=== PATIENT | female | born 1945 | race Asian ===

== ENCOUNTER 2018-03-09 14:13 | Emergency (ER) | payer MEDICARE, MEDICAID ==
[~2018-03-09] VITALS: Ht 152.4 cm; Wt 61.7 kg
[2018-03-09 15:28] VITALS: BP 137/71
--- NOTE | 2018-03-09 15:29 | Emergency Room Report ---
History of Present Illness General Chief Complaint: Head Injury Source: Patient Present Illness HPI This patient is Armenian speaking primarily.Apparently, this patient hit her head on the refrigerator yesterday. She did not fall or have syncope. She has had nausea and some shortness of breath throughout the day today. She was seen by her primary care physician who instructed her to come to the emergency department for further evaluation. She also had elevated blood pressure at the primary care physician's office.She denies chest pain or abdominal pain. She denies headache or blurry vision. She has no other complaints. The patient apparently hit her head on the refrigerator yesterday. She had been having nausea and shortness of breath and anxiety over the past day. She did see her primary care physician who had her present here to the emergency department for further evaluation. She denies headache. She denies chest pain. She denies abdominal pain. She has no other complaints. Allergies: Coded Allergies: No Known Allergies (Unverified , 03/09/18) Patient History Past Medical History: see triage record, DM, HTN Social History: Denies: smoking, alcohol use, drug use Last Menstrual Period: none Now: No Reviewed Nursing Documentation: PMH: Agreed; PSxH: Agreed Nursing Documentation-PMH Past Medical History: No History, Except For Hx Cardiac Problems: Yes - high cholesterol, hypothyroid Hx Hypertension: Yes Hx Diabetes: Yes Review of Systems All Other Systems: negative except mentioned in HPI Physical Exam Vital Signs Date Time Temp Pulse Resp B/P (MAP) Pulse Ox O2 Delivery O2 Flow Rate FiO2 03/09/18 14:27 98.6 71 20 149/74 96 Room Air 98.6 Sp02 EP Interpretation: reviewed, normal General Appearance: no apparent distress, alert, GCS 15, non-toxic Head: normocephalic, atraumatic Eyes: bilateral eye normal inspection, bilateral eye PERRL ENT: hearing grossly normal, normal pharynx, no angioedema, normal voice Neck: full range of motion, supple/symm/no masses Respiratory: chest non-tender, lungs clear, normal breath sounds, no respiratory distress, no retraction, no accessory muscle use, speaking full sentences Cardiovascular #1: regular rate, rhythm, no edema Gastrointestinal: normal bowel sounds, non tender, soft, non-distended, no guarding, no rebound Rectal: deferred Musculoskeletal: back normal, gait/station normal, normal range of motion, non- tender Neurologic: alert, oriented x3, responsive, motor strength/tone normal, sensory intact, speech normal Psychiatric: judgement/insight normal, memory normal, mood/affect normal, no suicidal/homicidal ideation Skin: normal color, no rash, warm/dry, well hydrated Medical Decision Making Diagnostic Impression: Primary Impression: Closed head injury ER Course This patient presented with nausea after striking her head on a refrigerator. Her evaluation is reassuring. Given the patient's age, I did obtain a CT of the head. There is no acute findings. Specifically no intracranial bleed. Laboratory workup is also benign. The patient had slightly elevated blood pressure with systolics in the 140s. This would not require intervention in the emergency department. The patient was asymptomatic for an emergency department and nontoxic overall. At this time, I did not identify an emergency medical condition. The patient is given close return precautions and follow-up instructions. Laboratory Tests Test 03/09/18 16:05 03/09/18 17:00 Sodium Level 142 MMOL/L (136-145) Potassium Level 4.6 MMOL/L (3.5-5.1) Chloride Level 105 MMOL/L (98-107) Carbon Dioxide Level 25 MMOL/L (21-32) Anion Gap 12 mmol/L (5-15) Blood Urea Nitrogen 12 mg/dL (7-18) Creatinine 0.9 MG/DL (0.55-1.30) Estimate Glomerular Filtration Rate mL/min (>60) Glucose Level 211 MG/DL (74-106) H Calcium Level 10.2 MG/DL (8.5-10.1) H Total Bilirubin 0.5 MG/DL (0.2-1.0) Aspartate Amino Transferase (AST) 24 U/L (15-37) Alanine Aminotransferase (ALT) 36 U/L (12-78) Alkaline Phosphatase 52 U/L (46-116) Total Creatine Kinase 45 U/L (26-308) Creatine Kinase MB < 0.5 NG/ML (0.0-3.6) Creatine Kinase MB Relative Index 1.1 Troponin I 0.000 ng/mL (0.000-0.056) Total Protein 8.6 G/DL (6.4-8.2) H Albumin 4.3 G/DL (3.4-5.0) Globulin 4.3 g/dL Albumin/Globulin Ratio 1.0 (1.0-2.7) White Blood Count 6.4 K/UL (4.8-10.8) Red Blood Count 4.11 M/UL (4.20-5.40) L Hemoglobin 12.5 G/DL (12.0-16.0) Hematocrit 35.6 % (37.0-47.0) L Mean Corpuscular Volume 87 FL (80-99) Mean Corpuscular Hemoglobin 30.5 PG (27.0-31.0) Mean Corpuscular Hemoglobin Concent 35.1 G/DL (32.0-36.0) Red Cell Distribution Width 11.9 % (11.6-14.8) Platelet Count 215 K/UL (150-450) Mean Platelet Volume 8.0 FL (6.5-10.1) Neutrophils (%) (Auto) % (45.0-75.0) Lymphocytes (%) (Auto) % (20.0-45.0) Monocytes (%) (Auto) % (1.0-10.0) Eosinophils (%) (Auto) % (0.0-3.0) Basophils (%) (Auto) % (0.0-2.0) Differential Total Cells Counted 100 Neutrophils % (Manual) 85 % (45-75) H Lymphocytes % (Manual) 13 % (20-45) L Monocytes % (Manual) 2 % (1-10) Eosinophils % (Manual) 0 % (0-3) Basophils % (Manual) 0 % (0-2) Band Neutrophils 0 % (0-8) Platelet Estimate Adequate Platelet Morphology Normal Red Blood Cell Morphology Normal Prothrombin Time 9.8 SEC (9.30-11.50) Prothrombin Time INR 0.9 (0.9-1.1) PTT 26 SEC (23-33) EKG Diagnostic Results Rate: normal Rhythm: NSR ST Segments: no acute changes Rhythm Strip Diag. Results EP Interpretation: yes Rate: 70's Rhythm: NSR, no PVC's, no ectopy Chest X-Ray Diagnostic Results Chest X-Ray Diagnostic Results : Chest X-Ray Ordered: Yes # of Views/Limited/Complete: 1 View Indication: Shortness of Breath EP Interpretation: No Interpretation: no consolidation, no effusion, no pneumothorax, no acute cardiopulmonary disease, other - Cardiomegaly Impression: No acute disease Electronically Signed by: Ezra CT/MRI/US Diagnostic Results CT/MRI/US Diagnostic Results : Imaging Test Ordered: CT head Impression No acute findings. See official report. Last Vital Signs Date Time Temp Pulse Resp B/P (MAP) Pulse Ox O2 Delivery O2 Flow Rate FiO2 03/09/18 14:27 98.6 71 20 149/74 96 Room Air 98.6 Status: improved Disposition: HOME, SELF-CARE Condition: Improved Patient Instructions: Head Injury, Adult, [id number] Additional Instructions: Please follow-up with your primary care physician for blood pressure control. PRASAD CORRIGAN D.O. Mar 09, 2018 15:29
--- NOTE | 2018-03-09 15:46 | Diagnostic Imaging Report ---
Indications: Headache, status post trauma Technique: Spiral acquisitions obtained through the brain. Angled axial and coronal 5 x 5 mm slices were reconstructed. Total dose length product 1439.42 mGycm. CTDI vol(s) 70.38 mGy. Dose reduction achieved using automated exposure control Comparison: None. Findings: No acute hemorrhage or edema. No mass effect or midline shift. Normal dawkins-white differentiation. Questionable tiny old lacunar infarcts seen in the right side of the bernabe. Visualized orbits and sinuses are unremarkable. Intact calvarium. There is mild age-related enlargement of the ventricles and extra axial CSF spaces. There is mild periventricular deep white matter low-attenuation consistent with chronic ischemic change Impression: Mild chronic and age-related changes, as described Negative for acute intracranial bleed or mass effect The CT scanner at [facility] is accredited by the [employer] and the scans are performed using protocols designed to limit radiation exposure to as low as reasonably achievable to attain images of sufficient resolution adequate for diagnostic evaluation.
--- NOTE | 2018-03-09 15:52 | Diagnostic Imaging Report ---
Indication: Shortness of breath Technique: One view of the chest Comparison: none Findings: The heart is mildly enlarged. There is equivocal mild interstitial congestion. No focal airspace consolidation. The pleural spaces are clear Impression: Cardiomegaly Equivocal mild interstitial congestion-correlate with clinical findings
[2018-03-09 16:35] LABS: ANION GAP 12 mmol/L (5-15); BLOOD UREA NITROGEN 12 mg/dL (7-18); CALCIUM 10.2 MG/DL (8.5-10.1); CARBON DIOXIDE 25 MMOL/L (21-32); CHLORIDE 105 MMOL/L (98-107); CREATININE 0.9 MG/DL (0.55-1.30); POTASSIUM 4.6 MMOL/L (3.5-5.1); SODIUM 142 MMOL/L (136-145)
[2018-03-09 16:49] LABS: ALANINE AMINOTRANSFERASE 36 U/L (12-78); ALBUMIN 4.3 G/DL (3.4-5.0); ALKALINE PHOSPHATASE 52 U/L (46-116); ASPARTATE AMINO TRANSFERASE 24 U/L (15-37); BILIRUBIN,TOTAL 0.5 MG/DL (0.2-1.0); CKMB < 0.5 NG/ML (0.0-3.6); CREATINE KINASE 45 U/L (26-308)
[2018-03-09 17:12] LABS: HEMATOCRIT 35.6 % (37.0-47.0); HEMOGLOBIN 12.5 G/DL (12.0-16.0); MEAN CORPUSCULAR VOLUME 87 FL (80-99); PLATELET COUNT 215 K/UL (150-450); RED BLOOD COUNT 4.11 M/UL (4.20-5.40); RED CELL DISTRIBUTION WIDTH 11.9 % (11.6-14.8); WHITE BLOOD COUNT 6.4 K/UL (4.8-10.8)
[2018-03-09 17:17] LABS: INR 0.9 (0.9-1.1)
[2018-03-09 19:50] VITALS: BP 152/74
[2018-03-09 19:55] VITALS: BP 152/74
--- NOTE | 2018-03-10 21:22 | Cardiology Report ---
APPROVED REPORT EKG Measurement Heart [id number] Normal sinus rhythm Normal ECG
== END 2018-03-09 19:55 | disposition home or self-care (01) ==
LOC: EMR 15:09
DX: S09.8XXA Other specified injuries of head, initial encounter (principal); W22.03XA Walked into furniture, initial encounter; Y92.9 Unspecified place or not applicable; E11.9 Type 2 diabetes mellitus without complications; I10 Essential (primary) hypertension
CPT/HCPCS: 36415; 70450; 71045; 80053; 82550; 82553; 84484; 85007; 85025; 85610; 85730; 93005; 99284

== ENCOUNTER 2018-07-20 16:13 | Inpatient (IN) | payer MEDICARE, MEDICAID ==
[~2018-07-20] VITALS: Ht 165.1 cm; Wt 81.6 kg
[2018-07-20 16:20] VITALS: BP 119/66
[2018-07-20] MEDS ORDERED: Morphine Sulfate 4mg/ml Inj (IV USE ONLY) IVP ONE ×2 (16:45→19:15)
[2018-07-20 17:14] LABS: BASOPHILS % (AUTO) 1.1 % (0.0-2.0); EOSINOPHILS % (AUTO) 2.2 % (0.0-3.0); HEMATOCRIT 38.5 % (37.0-47.0); HEMOGLOBIN 13.1 G/DL (12.0-16.0); MEAN CORPUSCULAR VOLUME 88 FL (80-99); MONOCYTES % (AUTO) 7.4 % (1.0-10.0); NEUTROPHILS % (AUTO) 54.4 % (45.0-75.0); PLATELET COUNT 243 K/UL (150-450); RED BLOOD COUNT 4.39 M/UL (4.20-5.40); RED CELL DISTRIBUTION WIDTH 11.4 % (11.6-14.8); WHITE BLOOD COUNT 5.9 K/UL (4.8-10.8)
[2018-07-20 17:25] LABS: ANION GAP 10 mmol/L (5-15); BLOOD UREA NITROGEN 28 mg/dL (7-18); CARBON DIOXIDE 27 MMOL/L (21-32); CHLORIDE 101 MMOL/L (98-107); CREATININE 1.3 MG/DL (0.55-1.30); POTASSIUM 3.9 MMOL/L (3.5-5.1); SODIUM 138 MMOL/L (136-145)
[2018-07-20 17:37] LABS: ALANINE AMINOTRANSFERASE 27 U/L (12-78); ALBUMIN 3.8 G/DL (3.4-5.0); ALKALINE PHOSPHATASE 52 U/L (46-116); ASPARTATE AMINO TRANSFERASE 23 U/L (15-37); BILIRUBIN,TOTAL 0.3 MG/DL (0.2-1.0); CREATINE KINASE 42 U/L (26-308)
[2018-07-20] MEDS ORDERED: GLIPIZIDE10 MG PO (17:46)
[2018-07-20] MEDS ORDERED: NEXIUM40 MG ORAL (17:46)
[2018-07-20] MEDS ORDERED: PATADAY2.5 ML OP (17:46)
[2018-07-20] MEDS ORDERED: PAZEO2.5 ML OP (17:46)
[2018-07-20] MEDS ORDERED: POLYTRIM OP SOL10 ML (17:46)
[2018-07-20] MEDS ORDERED: BENZTROPINE ME0.5 MG PO (17:46)
[2018-07-20] MEDS ORDERED: BENICAR40 MG ORAL (17:46)
[2018-07-20] MEDS ORDERED: ILEVRO1.7 ML OP (17:46)
[2018-07-20] MEDS ORDERED: METFORMIN HCL750 MG ORAL (17:46)
[2018-07-20] MEDS ORDERED: JANUVIA50 MG ORAL (17:46)
[2018-07-20] MEDS ORDERED: ATORVASTATIN CA20 MG ORAL (17:46)
[2018-07-20] MEDS ORDERED: DUREZOL5 M1 OP (17:46)
[2018-07-20] MEDS ORDERED: AMLODIPINE BESY10 MG ORAL (17:46)
[2018-07-20] MEDS ORDERED: LYRICA75 M1 ORAL (17:46)
[2018-07-20] MEDS ORDERED: RALOXIFENE HCL60 MG PO (17:46)
[2018-07-20] MEDS ORDERED: Metoclopramide 10mg/2ml Inj IVP ONE (19:15)
[2018-07-20] MEDS ORDERED: DiphenhydrAMINE 50mg/ml Inj IVP ONE (19:15)
[2018-07-20 19:30] VITALS: BP 119/66
[2018-07-20 20:13] LABS: APPEARANCE,URINE CLEAR; BILIRUBIN, URINE NEGATIVE (NEGATIVE); COLOR,URINE PALE YELLOW; GLUCOSE, URINE (UA) 4+ (NEGATIVE); KETONES,URINE NEGATIVE (NEGATIVE); LEUKOCYTE ESTERASE ,URINE 1+ (NEGATIVE); NITRITE,URINE NEGATIVE (NEGATIVE); PH,URINE 6.5 (4.5-8.0); PROTEIN,URINE NEGATIVE (NEGATIVE); UROBILINOGEN,URINE NORMAL MG/DL (0.0-1.0)
[2018-07-20 20:30] VITALS: BP 112/63
--- NOTE | 2018-07-21 01:49 | Emergency Room Report ---
History of Present Illness General Chief Complaint: Headache Source: Patient, Medical Record Present Illness HPI Patient with 2-3 days of increased headache. This is occipital, severe, constant. Keeps awake with pain. Not radiate to neck. Alleged fevers but not documented. Generalized weakness. Poor appetite with nausea with no vomiting. Herbal medication taken for this without help. Pain rated 10/10, aching and pressure. She was evaluated 03/09 post hitting he head on the refrigerator. Normal evaluation. No chest pain, dyspnea, rashes, abdominal pain. States dysuria - hot - urine. Diabetic and unknown if sugars have been high. HTN and allegedly BP has been poorly controlled. Was sent by PMD with question if CVA from his office. 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 Reviewed Nursing Documentation: PMH: Agreed; PSxH: Agreed Nursing Documentation-PMH Past Medical History: No History, Except For Hx Cardiac Problems: Yes - high cholesterol, hypothyroid Hx Hypertension: Yes Hx Diabetes: Yes Hx Gastrointestinal Problems: No Review of Systems All Other Systems: negative except mentioned in HPI Physical Exam Vital Signs Date Time Temp Pulse Resp B/P (MAP) Pulse Ox O2 Delivery O2 Flow Rate FiO2 07/20/18 16:19 98.4 73 18 119/66 96 Room Air 98.4 Sp02 EP Interpretation: reviewed, normal General Appearance: well appearing, no apparent distress, non-toxic, other - GCS 14, keeps eyes closed and poor cooperation Head: normocephalic Eyes: bilateral eye PERRL, bilateral eye EOMI, bilateral eye Scleral Injection ENT: normal pharynx, moist mucus membranes Neck: supple Respiratory: lungs clear, normal breath sounds Cardiovascular #1: regular rate, rhythm Cardiovascular #2: 2+ radial (R) Gastrointestinal: normal inspection, normal bowel sounds, non tender, no mass, non-distended Musculoskeletal: back normal, normal range of motion, other - halting gait Neurologic: oriented x3, pipe layer helper III-XII nml as tested, motor strength/tone normal , DTRs symmetric, sensory intact, cerebellar normal, speech normal, other - resting tremor bilaterally Psychiatric: depressed affect Skin: normal inspection, warm/dry Medical Decision Making Diagnostic Impression: Primary Impression: Headache Qualified Codes: R51 - Headache Additional Impressions: Depression Qualified Codes: F32.9 - Major depressive disorder, single episode, unspecified Hyperglycemia Dehydration ER Course Patient with worsened headache. DDx: bleed, CVA, tension, migraine, vasculitis , depression, medication side effect, dehydration, encephalitis, viral syndrome , arthritis, post concussive syndrome amongst others. Evaluation with CT, EKG, CXR, labs. Treatment with IV hydration and analgesics. co-morbidities withe HTN and DM. EKG no injury. CXR no infiltrates. CT with chronic changes. Labs with elevated sed rate, elevated BUN and glucose. Treated with good analgesics and reports "no change" still 08/31. Analgesics repeated as well as Reglan and benadyl. Discussed with referring MD who requests admission to hospital for further evaluation, treatment and observation. Laboratory Tests Test 07/20/18 16:50 07/20/18 19:47 White Blood Count 5.9 K/UL (4.8-10.8) Red Blood Count 4.39 M/UL (4.20-5.40) Hemoglobin 13.1 G/DL (12.0-16.0) Hematocrit 38.5 % (37.0-47.0) Mean Corpuscular Volume 88 FL (80-99) Mean Corpuscular Hemoglobin 29.9 PG (27.0-31.0) Mean Corpuscular Hemoglobin Concent 34.1 G/DL (32.0-36.0) Red Cell Distribution Width 11.4 % (11.6-14.8) L Platelet Count 243 K/UL (150-450) Mean Platelet Volume 8.3 FL (6.5-10.1) Neutrophils (%) (Auto) 54.4 % (45.0-75.0) Lymphocytes (%) (Auto) 35.0 % (20.0-45.0) Monocytes (%) (Auto) 7.4 % (1.0-10.0) Eosinophils (%) (Auto) 2.2 % (0.0-3.0) Basophils (%) (Auto) 1.1 % (0.0-2.0) Erythrocyte Sedimentation Rate 34 MM/HR (0-30) H Prothrombin Time 10.2 SEC (9.30-11.50) Prothrombin Time INR 1.0 (0.9-1.1) PTT 25 SEC (23-33) Sodium Level 138 MMOL/L (136-145) Potassium Level 3.9 MMOL/L (3.5-5.1) Chloride Level 101 MMOL/L (98-107) Carbon Dioxide Level 27 MMOL/L (21-32) Anion Gap 10 mmol/L (5-15) Blood Urea Nitrogen 28 mg/dL (7-18) H Creatinine 1.3 MG/DL (0.55-1.30) Estimate Glomerular Filtration Rate mL/min (>60) Glucose Level 216 MG/DL (74-106) H Calcium Level 10.0 MG/DL (8.5-10.1) Total Bilirubin 0.3 MG/DL (0.2-1.0) Aspartate Amino Transferase (AST) 23 U/L (15-37) Alanine Aminotransferase (ALT) 27 U/L (12-78) Alkaline Phosphatase 52 U/L (46-116) Total Creatine Kinase 42 U/L (26-308) Troponin I 0.024 ng/mL (0.000-0.056) C-Reactive Protein, Quantitative < 0.4 mg/dL (0.00-0.90) Pro-B-Type Natriuretic Peptide 43 pg/mL (0-125) Total Protein 7.7 G/DL (6.4-8.2) Albumin 3.8 G/DL (3.4-5.0) Globulin 3.9 g/dL Albumin/Globulin Ratio 1.0 (1.0-2.7) Thyroid Stimulating Hormone (TSH) 0.561 uiU/mL (0.358-3.740) Urine Color Pale yellow Urine Appearance Clear Urine pH 6.5 (4.5-8.0) Urine Specific [place] 1.015 (1.005-1.035) Urine Protein Negative (NEGATIVE) Urine Glucose (UA) 4+ (NEGATIVE) H Urine Ketones Negative (NEGATIVE) Urine Blood Negative (NEGATIVE) Urine Nitrite Negative (NEGATIVE) Urine Bilirubin Negative (NEGATIVE) Urine Urobilinogen Normal MG/DL (0.0-1.0) Urine Leukocyte Esterase 1+ (NEGATIVE) H Urine RBC 0-2 /HPF (0 - 2) Urine WBC 0-2 /HPF (0 - 2) Urine Squamous Epithelial Cells Few /LPF (NONE/OCC) Urine Bacteria Occasional /HPF (NONE) EKG Diagnostic Results Rate: normal Rhythm: NSR ST Segments: no acute changes Rhythm Strip Diag. Results EP Interpretation: yes Rhythm: NSR, no PVC's, no ectopy Chest X-Ray Diagnostic Results Chest X-Ray Diagnostic Results : Chest X-Ray Ordered: Yes # of Views/Limited/Complete: 1 View Indication: Other EP Interpretation: Yes Interpretation: no consolidation, no effusion, no pneumothorax, other - DJD , cardiomegally Impression: Other Electronically Signed by: Jesus Sanz MD CT/MRI/US Diagnostic Results CT/MRI/US Diagnostic Results : Imaging Test Ordered: head Impression chronic changes, no obvious CVA Last Vital Signs Date Time Temp Pulse Resp B/P (MAP) Pulse Ox O2 Delivery O2 Flow Rate FiO2 07/21/18 00:57 Room Air 07/20/18 20:30 98.2 75 16 112/63 97 Disposition: ADMITTED INPATIENT Condition: Critical Referrals: DEVEN GARCIA (PCP) Jesus Sanz M.D. Jul 21, 2018 01:49
[2018-07-21] MEDS: Norco 5mg/325mg tab ORAL PRN (03:04)
[2018-07-21 04:00] VITALS: BP 114/69
[2018-07-21] MEDS: NovoLOG Insulin Flexpen SUBQ SCH ×4 (06:30→21:16)
--- NOTE | 2018-07-21 06:59 | History & Physical ---
History and Physical History & Physicial History and Physical Chief Complaint: Headache, admitted from office (Enrique Brewer) Source: Patient, Medical Record DOS: 07/21/18 Present Illness HPI Patient with 2-3 days of increased headache. This is occipital, severe, constant. Keeps awake with pain. Not radiate to neck. Alleged fevers but not documented. Generalized weakness. Poor appetite with nausea with no vomiting. Herbal medication taken for this without help. Pain rated 10/10, aching and pressure. She was evaluated 03/09 post hitting he head on the refrigerator. Normal evaluation. She was last seen here in 01/2018. No chest pain, dyspnea, rashes, abdominal pain. States dysuria - hot - urine. Diabetic and unknown if sugars have been high. HTN and allegedly BP has been poorly controlled. Was sent by PMD with question if CVA from his office. 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 Reviewed Nursing Documentation: PMH: Agreed; PSxH: Agreed Nursing Documentation-PMH Past Medical History: No History, Except For Hx Cardiac Problems: Yes - high cholesterol, hypothyroid Hx Hypertension: Yes Hx Diabetes: Yes Hx Gastrointestinal Problems: No ER ROS - General Review of Systems All Other Systems: negative except mentioned in HPI ER Physical Exam - General Physical Exam Vital Signs Last 24 Hour Vital Signs Date Time Temp Pulse Resp B/P (MAP) Pulse Ox O2 Delivery O2 Flow Rate FiO2 07/21/18 04:00 98.0 69 20 114/69 (84) 100 98.0 07/21/18 03:38 69 07/21/18 00:57 Room Air 07/21/18 00:09 61 07/20/18 20:30 98.2 75 16 112/63 97 Room Air 07/20/18 20:30 75 18 112/63 97 Room Air 07/20/18 19:30 98.4 73 18 119/66 96 Room Air 98.4 07/20/18 19:29 98.4 07/20/18 16:48 98.4 07/20/18 16:20 98.4 73 18 119/66 96 Room Air 98.4 07/20/18 16:19 98.4 73 18 119/66 96 Room Air 98.4 Sp02 EP Interpretation: reviewed, normal General Appearance: well appearing, no apparent distress, non-toxic, other - GCS 14, keeps eyes closed and poor cooperation Head: normocephalic Eyes: bilateral eye PERRL, bilateral eye EOMI, bilateral eye Scleral Injection ENT: normal pharynx, moist mucus membranes Neck: supple Respiratory: lungs clear, normal breath sounds Cardiovascular #1: regular rate, rhythm Cardiovascular #2: 2+ radial (R) Gastrointestinal: normal inspection, normal bowel sounds, non tender, no mass, non-distended Musculoskeletal: back normal, normal range of motion, other - halting gait Neurologic: oriented x3, director counseling bureau III-XII nml as tested, motor strength/tone normal , DTRs symmetric, sensory intact, cerebellar normal, speech normal, other - resting tremor bilaterally Psychiatric: depressed affect Laboratory Tests Test 07/20/18 16:50 07/20/18 19:47 White Blood Count 5.9 K/UL (4.8-10.8) Red Blood Count 4.39 M/UL (4.20-5.40) Hemoglobin 13.1 G/DL (12.0-16.0) Hematocrit 38.5 % (37.0-47.0) Mean Corpuscular Volume 88 FL (80-99) Mean Corpuscular Hemoglobin 29.9 PG (27.0-31.0) Mean Corpuscular Hemoglobin Concent 34.1 G/DL (32.0-36.0) Red Cell Distribution Width 11.4 % (11.6-14.8) L Platelet Count 243 K/UL (150-450) Mean Platelet Volume 8.3 FL (6.5-10.1) Neutrophils (%) (Auto) 54.4 % (45.0-75.0) Lymphocytes (%) (Auto) 35.0 % (20.0-45.0) Monocytes (%) (Auto) 7.4 % (1.0-10.0) Eosinophils (%) (Auto) 2.2 % (0.0-3.0) Basophils (%) (Auto) 1.1 % (0.0-2.0) Erythrocyte Sedimentation Rate 34 MM/HR (0-30) H Prothrombin Time 10.2 SEC (9.30-11.50) Prothrombin Time INR 1.0 (0.9-1.1) PTT 25 SEC (23-33) Sodium Level 138 MMOL/L (136-145) Potassium Level 3.9 MMOL/L (3.5-5.1) Chloride Level 101 MMOL/L (98-107) Carbon Dioxide Level 27 MMOL/L (21-32) Anion Gap 10 mmol/L (5-15) Blood Urea Nitrogen 28 mg/dL (7-18) H Creatinine 1.3 MG/DL (0.55-1.30) Estimate Glomerular Filtration Rate mL/min (>60) Glucose Level 216 MG/DL (74-106) H Calcium Level 10.0 MG/DL (8.5-10.1) Total Bilirubin 0.3 MG/DL (0.2-1.0) Aspartate Amino Transferase (AST) 23 U/L (15-37) Alanine Aminotransferase (ALT) 27 U/L (12-78) Alkaline Phosphatase 52 U/L (46-116) Total Creatine Kinase 42 U/L (26-308) Troponin I 0.024 ng/mL (0.000-0.056) C-Reactive Protein, Quantitative < 0.4 mg/dL (0.00-0.90) Pro-B-Type Natriuretic Peptide 43 pg/mL (0-125) Total Protein 7.7 G/DL (6.4-8.2) Albumin 3.8 G/DL (3.4-5.0) Globulin 3.9 g/dL Albumin/Globulin Ratio 1.0 (1.0-2.7) Thyroid Stimulating Hormone (TSH) 0.561 uiU/mL (0.358-3.740) Urine Color Pale yellow Urine Appearance Clear Urine pH 6.5 (4.5-8.0) Urine Specific [place] 1.015 (1.005-1.035) Urine Protein Negative (NEGATIVE) Urine Glucose (UA) 4+ (NEGATIVE) H Urine Ketones Negative (NEGATIVE) Urine Blood Negative (NEGATIVE) Urine Nitrite Negative (NEGATIVE) Urine Bilirubin Negative (NEGATIVE) Urine Urobilinogen Normal MG/DL (0.0-1.0) Urine Leukocyte Esterase 1+ (NEGATIVE) H Urine RBC 0-2 /HPF (0 - 2) Urine WBC 0-2 /HPF (0 - 2) Urine Squamous Epithelial Cells Few /LPF (NONE/OCC) Urine Bacteria Occasional /HPF (NONE) EKG Diagnostic Results Rate: normal Rhythm: NSR ST Segments: no acute changes Rhythm Strip Diag. Results EP Interpretation: yes Rhythm: NSR, no PVC's, no ectopy Chest X-Ray Diagnostic Results Chest X-Ray Diagnostic Results : Chest X-Ray Ordered: Yes # of Views/Limited/Complete: 1 View Indication: Other EP Interpretation: Yes Interpretation: no consolidation, no effusion, no pneumothorax, other - DJD , cardiomegally Impression: Other Electronically Signed by: Jesus Sanz MD CT/MRI/US Diagnostic Results CT/MRI/US Diagnostic Results : Imaging Test Ordered: head Impression chronic changes, no obvious CVA Assessment and Recs: # Failure to thrive - likely related to underlying headache, has been ongoing --> ct of the brain has ruled out brain tumor --> tumor markers from before were negative, has received kumari-scan also negative for malignancy --> outpatient f/u with Dr. Enrique Brewer in heme clinic for hydration on prn basis --> Treatment with IV hydration and analgesics. co-morbidities withe HTN and DM. # Worsening headache - have scanned his brain at this time to rule out massive cva --> have consulted neurology as well to rule out subacute stroke versus other causes --> was given hydration in the office, r/o other causes, DDx: bleed, CVA, tension, migraine, vasculitis, depression, medication side effect, dehydration, encephalitis, viral syndrome, arthritis, post concussive syndrome amongst others. # HTN - sbp gooal less than 140 --> Dr. Quarles has been consulted # Elev trop and cardiomegaly, cards to follow --> IM consulted, Dr. Alexis Hawthorne # Major depressive disorder, single episode, unspecified # Hyperglycemia # Dehydration --> renal consulted --> Bun elevated on admission # Prior infiltrated on cxr - have consulted pulm Appreciate all c consultant care. Osbaldo Brewer MD Jul 21, 2018 06:59
[2018-07-21 07:27] LABS: BASOPHILS % (AUTO) 0.7 % (0.0-2.0); EOSINOPHILS % (AUTO) 0.8 % (0.0-3.0); HEMOGLOBIN 12.6 G/DL (12.0-16.0); LYMPHOCYTES % (AUTO) 30.2 % (20.0-45.0); MEAN CORPUSCULAR VOLUME 86 FL (80-99); MONOCYTES % (AUTO) 7.2 % (1.0-10.0); NEUTROPHILS % (AUTO) 61.1 % (45.0-75.0); PLATELET COUNT 257 K/UL (150-450); RED BLOOD COUNT 4.27 M/UL (4.20-5.40); RED CELL DISTRIBUTION WIDTH 11.1 % (11.6-14.8); WHITE BLOOD COUNT 8.3 K/UL (4.8-10.8)
[2018-07-21 07:53] LABS: ALANINE AMINOTRANSFERASE 21 U/L (12-78); ALBUMIN 3.7 G/DL (3.4-5.0); ALBUMIN/GLOBULIN RATIO 0.9 (1.0-2.7); ALKALINE PHOSPHATASE 49 U/L (46-116); ANION GAP 8 mmol/L (5-15); ASPARTATE AMINO TRANSFERASE 18 U/L (15-37); BILIRUBIN,TOTAL 0.4 MG/DL (0.2-1.0); BLOOD UREA NITROGEN 28 mg/dL (7-18); CALCIUM 9.9 MG/DL (8.5-10.1); CARBON DIOXIDE 27 MMOL/L (21-32); CHLORIDE 102 MMOL/L (98-107); CREATININE 1.2 MG/DL (0.55-1.30); POTASSIUM 4.1 MMOL/L (3.5-5.1); SODIUM 137 MMOL/L (136-145)
[2018-07-21 08:00] VITALS: BP 103/58
--- NOTE | 2018-07-21 08:18 | Diagnostic Imaging Report ---
Indication: Vertigo and headache Technique: spiral acquisitions obtained through the brain. Angled axial and coronal 5 x 5 mm slices were reconstructed. No IV contrast utilized. Radiation dose was minimized using automated exposure control Total dose length product 1326.61 mGycm. CTDIvol(s) 70.38 mGy Comparison: 03/09/2018 FINDINGS: No acute hemorrhage or edema. No mass effect or midline shift. There is age-related enlargement of the ventricles and extra axial CSF spaces. There is periventricular deep white matter ischemic change. Normal dawkins-white differentiation. Is evidence of prior bilateral cataract surgery. Visualized sinuses are unremarkable. Intact calvarium. No significant interim change IMPRESSION: Chronic and age-related changes. Negative for acute intracranial bleed or mass effect This agrees with the preliminary interpretation provided overnight by [facility]erad[facility] service. The CT scanner at [facility] is accredited by the [employer] and the scans are performed using protocols designed to limit radiation exposure to as low as reasonably achievable to attain images of sufficient resolution adequate for diagnostic evaluation
--- NOTE | 2018-07-21 08:20 | Diagnostic Imaging Report ---
Indication: Chest pain Technique: One view of the chest Comparison: For 2017 Findings: The heart is enlarged. There is bilateral interstitial congestion. The aorta is tortuous and calcified. Findings are similar to the previous study Impression: Cardiomegaly Bilateral interstitial congestion
--- NOTE | 2018-07-21 10:48 | Consultation ---
Consult Note Consult Note NEUROLOGY CONSULTATION: Full note dictated #[id number] 76 y/o, RH, KF with PH of HTN, DM and CHT a few months ago where she hit her head against a refrigerator. She has had daily headaches for > 1 year which worsened after her head trauma. The headache is a constant pain - predominantly bioccipital. ON EXAM: G 2/4 C-PS and trapezius spasm Problems with orientation, memory, VSF and HCF No focal or lateralizing findings. Globally diminished DTRs. IMPRESSION: Chronic muscle contraction headaches. Brain CT benign. REC: 1. Flexeril 10 mg q HS after single dose now. 2. Ibuprofen 400 mg tid x 5 days 3. Observe. Deana Medrano M.D., M.S.P.H. DEANA MEDRANO Jul 21, 2018 10:48
[2018-07-21] MEDS ORDERED: Cyclobenzaprine 10mg Tab ORAL SCH (11:00)
--- NOTE | 2018-07-21 11:47 | Consultation ---
History of Present Illness General Date patient seen: Jul 21, 2018 Chief Complaint: Headache Present Illness HPI 76 year old female with hx of HTN, DM, noncompliant, presented to ER with CC of 2-3 days of headache, which is occipital, severe, constant. Pt thinks she she might had fevers but not documented. Generalized weakness. Poor appetite with nausea with no vomiting. Her CXr showed cardiomegaly and pulmonary edema. She is admitted to telemetry for further work up. Allergies: Coded Allergies: No Known Allergies (Unverified , 03/09/18) Medication History Miscellaneous Medications Amlodipine Besylate* (Amlodipine Besylate*), 10 MG ORAL, (Reported) Atorvastatin Calcium* (Atorvastatin Calcium*), 20 MG ORAL, (Reported) Benztropine Mesylate* (Cogentin*), 1 MG PO, (Reported) Difluprednate (Durezol), 5 ML OP, (Reported) Esomeprazole Magnesium (Nexium), 40 MG ORAL, (Reported) Glipizide (Glipizide), 10 MG PO, (Reported) Metformin Hcl (Metformin Hcl Er), 750 MG ORAL, (Reported) Nepafenac (Ilevro), 1.7 ML OP, (Reported) Olmesartan Medoxomil (Benicar), 40 MG ORAL, (Reported) Olopatadine HCl (Pazeo), 2.5 ML OP, (Reported) Olopatadine Hcl (Pataday), 2.5 ML OP, (Reported) Polymyxin/Trimethoprim (Polytrim Eye Drops), 1 DROP, (Reported) Pregabalin* (Lyrica*), 75 MG ORAL, (Reported) Raloxifene HCl (Raloxifene HCl), 60 MG PO, (Reported) Sitagliptin (Januvia), 50 MG ORAL, (Reported) Patient History Healthcare decision maker Resuscitation status Full Code Advanced Directive on File No Past Medical/Surgical History Past Medical/Surgical History: (1) Diabetes mellitus (2) Hypertension (3) CVA (cerebral vascular accident) Review of Systems All Other Systems: negative except mentioned in HPI Physical Exam General Appearance: WD/WN Lines, tubes and drains: peripheral HEENT: normocephalic, atraumatic, anicteric Neck: non-tender, normal alignment Respiratory/Chest: chest wall non-tender, lungs clear, normal breath sounds Breasts: no masses Cardiovascular/Chest: normal peripheral pulses, no JVD Abdomen: normal bowel sounds Genitourinary/Rectal: normal genital exam Extremities: normal range of motion, non-pitting, trace edema Last 24 Hour Vital Signs Date Time Temp Pulse Resp B/P (MAP) Pulse Ox O2 Delivery O2 Flow Rate FiO2 07/21/18 09:00 Room Air 07/21/18 08:00 67 07/21/18 08:00 97.2 62 18 103/58 (73) 95 97.2 07/21/18 04:00 98.0 69 20 114/69 (84) 100 98.0 07/21/18 03:38 69 07/21/18 00:57 Room Air 07/21/18 00:09 61 07/20/18 20:30 98.2 75 16 112/63 97 Room Air 07/20/18 20:30 75 18 112/63 97 Room Air 07/20/18 19:30 98.4 73 18 119/66 96 Room Air 98.4 07/20/18 19:29 98.4 07/20/18 16:48 98.4 07/20/18 16:20 98.4 73 18 119/66 96 Room Air 98.4 07/20/18 16:19 98.4 73 18 119/66 96 Room Air 98.4 Intake and Output 07/20/18 07/21/18 19:00 07:00 Intake Total 240 ml Output Total 0 ml Balance 0 ml 240 ml Intake Oral 240 ml Output Urine Total 0 ml # Voids 2 Laboratory Tests Test 07/20/18 16:50 07/20/18 19:47 07/21/18 05:43 White Blood Count 5.9 K/UL (4.8-10.8) 8.3 K/UL (4.8-10.8) Red Blood Count 4.39 M/UL (4.20-5.40) 4.27 M/UL (4.20-5.40) Hemoglobin 13.1 G/DL (12.0-16.0) 12.6 G/DL (12.0-16.0) Hematocrit 38.5 % (37.0-47.0) 37.0 % (37.0-47.0) Mean Corpuscular Volume 88 FL (80-99) 86 FL (80-99) Mean Corpuscular Hemoglobin 29.9 PG (27.0-31.0) 29.5 PG (27.0-31.0) Mean Corpuscular Hemoglobin Concent 34.1 G/DL (32.0-36.0) 34.1 G/DL (32.0-36.0) Red Cell Distribution Width 11.4 % (11.6-14.8) L 11.1 % (11.6-14.8) L Platelet Count 243 K/UL (150-450) 257 K/UL (150-450) Mean Platelet Volume 8.3 FL (6.5-10.1) 8.7 FL (6.5-10.1) Neutrophils (%) (Auto) 54.4 % (45.0-75.0) 61.1 % (45.0-75.0) Lymphocytes (%) (Auto) 35.0 % (20.0-45.0) 30.2 % (20.0-45.0) Monocytes (%) (Auto) 7.4 % (1.0-10.0) 7.2 % (1.0-10.0) Eosinophils (%) (Auto) 2.2 % (0.0-3.0) 0.8 % (0.0-3.0) Basophils (%) (Auto) 1.1 % (0.0-2.0) 0.7 % (0.0-2.0) Erythrocyte Sedimentation Rate 34 MM/HR (0-30) H Prothrombin Time 10.2 SEC (9.30-11.50) Prothromb Time International Ratio 1.0 (0.9-1.1) Activated Partial Thromboplast Time 25 SEC (23-33) Sodium Level 138 MMOL/L (136-145) 137 MMOL/L (136-145) Potassium Level 3.9 MMOL/L (3.5-5.1) 4.1 MMOL/L (3.5-5.1) Chloride Level 101 MMOL/L (98-107) 102 MMOL/L (98-107) Carbon Dioxide Level 27 MMOL/L (21-32) 27 MMOL/L (21-32) Anion Gap 10 mmol/L (5-15) 8 mmol/L (5-15) Blood Urea Nitrogen 28 mg/dL (7-18) H 28 mg/dL (7-18) H Creatinine 1.3 MG/DL (0.55-1.30) 1.2 MG/DL (0.55-1.30) Estimat Glomerular Filtration Rate mL/min (>60) mL/min (>60) Glucose Level 216 MG/DL (74-106) H 133 MG/DL (74-106) H Calcium Level 10.0 MG/DL (8.5-10.1) 9.9 MG/DL (8.5-10.1) Total Bilirubin 0.3 MG/DL (0.2-1.0) 0.4 MG/DL (0.2-1.0) Aspartate Amino Transf (AST/SGOT) 23 U/L (15-37) 18 U/L (15-37) Alanine Aminotransferase (ALT/SGPT) 27 U/L (12-78) 21 U/L (12-78) Alkaline Phosphatase 52 U/L (46-116) 49 U/L (46-116) Total Creatine Kinase 42 U/L (26-308) Troponin I 0.024 ng/mL (0.000-0.056) C-Reactive Protein, Quantitative < 0.4 mg/dL (0.00-0.90) Pro-B-Type Natriuretic Peptide 43 pg/mL (0-125) Total Protein 7.7 G/DL (6.4-8.2) 7.6 G/DL (6.4-8.2) Albumin 3.8 G/DL (3.4-5.0) 3.7 G/DL (3.4-5.0) Globulin 3.9 g/dL 3.9 g/dL Albumin/Globulin Ratio 1.0 (1.0-2.7) 0.9 (1.0-2.7) L Thyroid Stimulating Hormone (TSH) 0.561 uiU/mL (0.358-3.740) Urine Color Pale yellow Urine Appearance Clear Urine pH 6.5 (4.5-8.0) Urine Specific [place] 1.015 (1.005-1.035) Urine Protein Negative (NEGATIVE) Urine Glucose (UA) 4+ (NEGATIVE) H Urine Ketones Negative (NEGATIVE) Urine Blood Negative (NEGATIVE) Urine Nitrite Negative (NEGATIVE) Urine Bilirubin Negative (NEGATIVE) Urine Urobilinogen Normal MG/DL (0.0-1.0) Urine Leukocyte Esterase 1+ (NEGATIVE) H Urine RBC 0-2 /HPF (0 - 2) Urine WBC 0-2 /HPF (0 - 2) Urine Squamous Epithelial Cells Few /LPF (NONE/OCC) Urine Bacteria Occasional /HPF (NONE) Hemoglobin A1c Pending Vitamin B12 Level Pending Vitamin D 25-Hydroxy Pending 25-Hydroxy Vitamin D2 Pending 25-Hydroxy Vitamin D3 Pending Folate Pending Rapid Plasma Reagin Pending Height (Feet): 5 Height (Inches): 5.00 Weight (Pounds): 180 Medications Current Medications Medications (Trade) Dose Ordered Sig/Sarah Route PRN Reason Start Time Stop Time Status Last Admin Dose Admin Acetaminophen/ Hydrocodone Bitart ([place] 5/325) 1 tab Q8H PRN ORAL For Pain 07/20/18 22:30 07/27/18 22:29 07/21/18 03:04 Amlodipine Besylate (Norvasc) 10 mg DAILY ORAL 07/22/18 09:00 08/21/18 08:59 UNV Atorvastatin Calcium (Lipitor) 20 mg DAILY ORAL 07/22/18 09:00 08/21/18 08:59 UNV Cyclobenzaprine HCl (Flexeril) 10 mg BEDTIME ORAL 07/21/18 21:00 08/20/18 20:59 Cyclobenzaprine HCl (Flexeril) 10 mg ONCE ORAL 07/21/18 11:00 07/21/18 12:00 Dextrose (Dextrose 50%) 25 ml STAT PRN IV Hypoglycemia 07/20/18 23:30 08/19/18 23:29 Dextrose (Dextrose 50%) 50 ml STAT PRN IV Hypoglycemia 07/20/18 23:30 08/19/18 23:29 Ibuprofen (Advil) 400 mg THREE TIMES A DAY ORAL 07/21/18 13:00 07/26/18 12:59 Insulin Aspart (NovoLOG) BEFORE MEALS AND HS SUBQ 07/21/18 06:30 08/20/18 06:29 Ondansetron HCl (Zofran) 4 mg Q6H PRN IVP Nausea & Vomiting 07/20/18 22:30 08/19/18 22:29 Pregabalin (Lyrica) 75 mg DAILY ORAL 07/22/18 09:00 08/21/18 08:59 UNV Sitagliptin Phosphate (Januvia) 50 mg DAILY ORAL 07/22/18 09:00 08/21/18 08:59 UNV Sodium Chloride 1,000 ml @ 50 mls/hr Q20H IV 07/21/18 08:45 08/20/18 08:44 07/21/18 10:46 Assessment/Plan Problem List: (1) Cardiomegaly ICD Codes: I51.7 - Cardiomegaly SNOMED: 9033484 (2) Interstitial edema ICD Codes: R60.9 - Edema, unspecified SNOMED: 992442930, 698519682 (3) Hyperglycemia ICD Codes: R73.9 - Hyperglycemia, unspecified SNOMED: 76373517 (4) Diabetes mellitus ICD Codes: E11.9 - Type 2 diabetes mellitus without complications SNOMED: 81485173 (5) Hypertension ICD Codes: I10 - Essential (primary) hypertension SNOMED: 67283040 (6) CVA (cerebral vascular accident) ICD Codes: I63.9 - Cerebral infarction, unspecified SNOMED: 358202027 Assessment/Plan echocardiogram check BNP might need diuretics, BP is borderline low now cardio evaluation dvt prophylaxis MRI of brain. Sherlyn Graves MD Jul 21, 2018 11:47
[2018-07-21 12:00] VITALS: BP 114/66
--- NOTE | 2018-07-21 12:41 | Consultation ---
History of Present Illness General Date patient seen: Jul 21, 2018 Chief Complaint: Headache Present Illness HPI 76 yo female with history of head trauma and TO for the past one year who came in for to. The head ct has been negative for mass or bleeding. the pt has hx of depression and anxiety. She has been off her antidepressants. the pt also has low energy fatigue and "not feeling well." No si/hi Allergies: Coded Allergies: No Known Allergies (Unverified , 03/09/18) Medication History Miscellaneous Medications Amlodipine Besylate* (Amlodipine Besylate*), 10 MG ORAL, (Reported) Atorvastatin Calcium* (Atorvastatin Calcium*), 20 MG ORAL, (Reported) Benztropine Mesylate* (Cogentin*), 1 MG PO, (Reported) Difluprednate (Durezol), 5 ML OP, (Reported) Esomeprazole Magnesium (Nexium), 40 MG ORAL, (Reported) Glipizide (Glipizide), 10 MG PO, (Reported) Metformin Hcl (Metformin Hcl Er), 750 MG ORAL, (Reported) Nepafenac (Ilevro), 1.7 ML OP, (Reported) Olmesartan Medoxomil (Benicar), 40 MG ORAL, (Reported) Olopatadine HCl (Pazeo), 2.5 ML OP, (Reported) Olopatadine Hcl (Pataday), 2.5 ML OP, (Reported) Polymyxin/Trimethoprim (Polytrim Eye Drops), 1 DROP, (Reported) Pregabalin* (Lyrica*), 75 MG ORAL, (Reported) Raloxifene HCl (Raloxifene HCl), 60 MG PO, (Reported) Sitagliptin (Januvia), 50 MG ORAL, (Reported) Patient History History Provided By: Patient, Caregiver, PMD Healthcare decision maker Resuscitation status Full Code Advanced Directive on File No Past Medical/Surgical History Past Medical/Surgical History: (1) Dehydration (2) Depression (3) Hyperglycemia (4) Headache (5) Diabetes mellitus (6) Hypertension (7) CVA (cerebral vascular accident) (8) Cardiomegaly (9) Interstitial edema Review of Systems Psychiatric: Reports: prior hx, anxiety, depressed feelings, emotional problems Physical Exam General Appearance: no apparent distress, alert Neurologic: oriented x 3, responsive, depressed affect Last 24 Hour Vital Signs Date Time Temp Pulse Resp B/P (MAP) Pulse Ox O2 Delivery O2 Flow Rate FiO2 07/21/18 12:05 97.2 07/21/18 12:04 97.2 07/21/18 09:00 Room Air 07/21/18 08:00 67 07/21/18 08:00 97.2 62 18 103/58 (73) 95 97.2 07/21/18 04:00 98.0 69 20 114/69 (84) 100 98.0 07/21/18 03:38 69 07/21/18 00:57 Room Air 07/21/18 00:09 61 07/20/18 20:30 98.2 75 16 112/63 97 Room Air 07/20/18 20:30 75 18 112/63 97 Room Air 07/20/18 19:30 98.4 73 18 119/66 96 Room Air 98.4 07/20/18 19:29 98.4 07/20/18 16:48 98.4 07/20/18 16:20 98.4 73 18 119/66 96 Room Air 98.4 07/20/18 16:19 98.4 73 18 119/66 96 Room Air 98.4 Intake and Output 07/20/18 07/21/18 19:00 07:00 Intake Total 240 ml Output Total 0 ml Balance 0 ml 240 ml Intake Oral 240 ml Output Urine Total 0 ml # Voids 2 Laboratory Tests Test 07/20/18 16:50 07/20/18 19:47 07/21/18 05:43 White Blood Count 5.9 K/UL (4.8-10.8) 8.3 K/UL (4.8-10.8) Red Blood Count 4.39 M/UL (4.20-5.40) 4.27 M/UL (4.20-5.40) Hemoglobin 13.1 G/DL (12.0-16.0) 12.6 G/DL (12.0-16.0) Hematocrit 38.5 % (37.0-47.0) 37.0 % (37.0-47.0) Mean Corpuscular Volume 88 FL (80-99) 86 FL (80-99) Mean Corpuscular Hemoglobin 29.9 PG (27.0-31.0) 29.5 PG (27.0-31.0) Mean Corpuscular Hemoglobin Concent 34.1 G/DL (32.0-36.0) 34.1 G/DL (32.0-36.0) Red Cell Distribution Width 11.4 % (11.6-14.8) L 11.1 % (11.6-14.8) L Platelet Count 243 K/UL (150-450) 257 K/UL (150-450) Mean Platelet Volume 8.3 FL (6.5-10.1) 8.7 FL (6.5-10.1) Neutrophils (%) (Auto) 54.4 % (45.0-75.0) 61.1 % (45.0-75.0) Lymphocytes (%) (Auto) 35.0 % (20.0-45.0) 30.2 % (20.0-45.0) Monocytes (%) (Auto) 7.4 % (1.0-10.0) 7.2 % (1.0-10.0) Eosinophils (%) (Auto) 2.2 % (0.0-3.0) 0.8 % (0.0-3.0) Basophils (%) (Auto) 1.1 % (0.0-2.0) 0.7 % (0.0-2.0) Erythrocyte Sedimentation Rate 34 MM/HR (0-30) H Prothrombin Time 10.2 SEC (9.30-11.50) Prothromb Time International Ratio 1.0 (0.9-1.1) Activated Partial Thromboplast Time 25 SEC (23-33) Sodium Level 138 MMOL/L (136-145) 137 MMOL/L (136-145) Potassium Level 3.9 MMOL/L (3.5-5.1) 4.1 MMOL/L (3.5-5.1) Chloride Level 101 MMOL/L (98-107) 102 MMOL/L (98-107) Carbon Dioxide Level 27 MMOL/L (21-32) 27 MMOL/L (21-32) Anion Gap 10 mmol/L (5-15) 8 mmol/L (5-15) Blood Urea Nitrogen 28 mg/dL (7-18) H 28 mg/dL (7-18) H Creatinine 1.3 MG/DL (0.55-1.30) 1.2 MG/DL (0.55-1.30) Estimat Glomerular Filtration Rate mL/min (>60) mL/min (>60) Glucose Level 216 MG/DL (74-106) H 133 MG/DL (74-106) H Calcium Level 10.0 MG/DL (8.5-10.1) 9.9 MG/DL (8.5-10.1) Total Bilirubin 0.3 MG/DL (0.2-1.0) 0.4 MG/DL (0.2-1.0) Aspartate Amino Transf (AST/SGOT) 23 U/L (15-37) 18 U/L (15-37) Alanine Aminotransferase (ALT/SGPT) 27 U/L (12-78) 21 U/L (12-78) Alkaline Phosphatase 52 U/L (46-116) 49 U/L (46-116) Total Creatine Kinase 42 U/L (26-308) Troponin I 0.024 ng/mL (0.000-0.056) C-Reactive Protein, Quantitative < 0.4 mg/dL (0.00-0.90) Pro-B-Type Natriuretic Peptide 43 pg/mL (0-125) Total Protein 7.7 G/DL (6.4-8.2) 7.6 G/DL (6.4-8.2) Albumin 3.8 G/DL (3.4-5.0) 3.7 G/DL (3.4-5.0) Globulin 3.9 g/dL 3.9 g/dL Albumin/Globulin Ratio 1.0 (1.0-2.7) 0.9 (1.0-2.7) L Thyroid Stimulating Hormone (TSH) 0.561 uiU/mL (0.358-3.740) Urine Color Pale yellow Urine Appearance Clear Urine pH 6.5 (4.5-8.0) Urine Specific [place] 1.015 (1.005-1.035) Urine Protein Negative (NEGATIVE) Urine Glucose (UA) 4+ (NEGATIVE) H Urine Ketones Negative (NEGATIVE) Urine Blood Negative (NEGATIVE) Urine Nitrite Negative (NEGATIVE) Urine Bilirubin Negative (NEGATIVE) Urine Urobilinogen Normal MG/DL (0.0-1.0) Urine Leukocyte Esterase 1+ (NEGATIVE) H Urine RBC 0-2 /HPF (0 - 2) Urine WBC 0-2 /HPF (0 - 2) Urine Squamous Epithelial Cells Few /LPF (NONE/OCC) Urine Bacteria Occasional /HPF (NONE) Hemoglobin A1c 8.0 % (4.3-6.0) H Vitamin B12 Level Pending Vitamin D 25-Hydroxy Pending 25-Hydroxy Vitamin D2 Pending 25-Hydroxy Vitamin D3 Pending Folate Pending Rapid Plasma Reagin Pending Height (Feet): 5 Height (Inches): 5.00 Weight (Pounds): 180 Medications Current Medications Medications (Trade) Dose Ordered Sig/Sarah Route PRN Reason Start Time Stop Time Status Last Admin Dose Admin Acetaminophen/ Hydrocodone Bitart ([place] 5/325) 1 tab Q8H PRN ORAL For Pain 07/20/18 22:30 07/27/18 22:29 07/21/18 03:04 Atorvastatin Calcium (Lipitor) 20 mg DAILY ORAL 07/22/18 09:00 08/21/18 08:59 Cyclobenzaprine HCl (Flexeril) 10 mg BEDTIME ORAL 07/21/18 21:00 08/20/18 20:59 Dextrose (Dextrose 50%) 25 ml STAT PRN IV Hypoglycemia 07/20/18 23:30 08/19/18 23:29 Dextrose (Dextrose 50%) 50 ml STAT PRN IV Hypoglycemia 07/20/18 23:30 08/19/18 23:29 Ibuprofen (Advil) 400 mg THREE TIMES A DAY ORAL 07/21/18 13:00 07/26/18 12:59 07/21/18 12:04 Insulin Aspart (NovoLOG) BEFORE MEALS AND HS SUBQ 07/21/18 06:30 08/20/18 06:29 Ondansetron HCl (Zofran) 4 mg Q6H PRN IVP Nausea & Vomiting 07/20/18 22:30 08/19/18 22:29 Pregabalin (Lyrica) 75 mg DAILY ORAL 07/22/18 09:00 08/21/18 08:59 Sitagliptin Phosphate (Januvia) 50 mg DAILY ORAL 07/22/18 09:00 08/21/18 08:59 Sodium Chloride 1,000 ml @ 50 mls/hr Q20H IV 07/21/18 08:45 08/20/18 08:44 07/21/18 10:46 Assessment/Plan Status: stable Assessment/Plan MDD Anxiety lexapro 10mg qam provided ro/Tree Prado MD Jul 21, 2018 12:40
[2018-07-21] MEDS ORDERED: Miralax 17gm pkt ORAL PRN (13:00)
[2018-07-21] MEDS ORDERED: Sennosides 8.6mg ORAL PRN (13:00)
[2018-07-21 16:00] VITALS: BP 114/68
--- NOTE | 2018-07-21 16:06 | Cardiac Electrophysiology PN ---
Subjective Subjective [id number] Objective Last 24 Hour Vital Signs Date Time Temp Pulse Resp B/P (MAP) Pulse Ox O2 Delivery O2 Flow Rate FiO2 07/21/18 13:04 97.2 07/21/18 13:03 97.2 07/21/18 12:33 75 07/21/18 12:05 97.2 07/21/18 12:04 97.2 07/21/18 12:00 97.9 81 18 114/66 (82) 95 97.9 07/21/18 09:00 Room Air 07/21/18 08:00 67 07/21/18 08:00 97.2 62 18 103/58 (73) 95 97.2 07/21/18 04:00 98.0 69 20 114/69 (84) 100 98.0 07/21/18 03:38 69 07/21/18 00:57 Room Air 07/21/18 00:09 61 07/20/18 20:30 98.2 75 16 112/63 97 Room Air 07/20/18 20:30 75 18 112/63 97 Room Air 07/20/18 19:30 98.4 73 18 119/66 96 Room Air 98.4 07/20/18 19:29 98.4 07/20/18 16:48 98.4 07/20/18 16:20 98.4 73 18 119/66 96 Room Air 98.4 07/20/18 16:19 98.4 73 18 119/66 96 Room Air 98.4 Intake and Output 07/20/18 07/21/18 19:00 07:00 Intake Total 240 ml Output Total 0 ml Balance 0 ml 240 ml Intake Oral 240 ml Output Urine Total 0 ml # Voids 2 Laboratory Tests Test 07/20/18 16:50 07/20/18 19:47 07/21/18 05:43 White Blood Count 5.9 K/UL (4.8-10.8) 8.3 K/UL (4.8-10.8) Red Blood Count 4.39 M/UL (4.20-5.40) 4.27 M/UL (4.20-5.40) Hemoglobin 13.1 G/DL (12.0-16.0) 12.6 G/DL (12.0-16.0) Hematocrit 38.5 % (37.0-47.0) 37.0 % (37.0-47.0) Mean Corpuscular Volume 88 FL (80-99) 86 FL (80-99) Mean Corpuscular Hemoglobin 29.9 PG (27.0-31.0) 29.5 PG (27.0-31.0) Mean Corpuscular Hemoglobin Concent 34.1 G/DL (32.0-36.0) 34.1 G/DL (32.0-36.0) Red Cell Distribution Width 11.4 % (11.6-14.8) L 11.1 % (11.6-14.8) L Platelet Count 243 K/UL (150-450) 257 K/UL (150-450) Mean Platelet Volume 8.3 FL (6.5-10.1) 8.7 FL (6.5-10.1) Neutrophils (%) (Auto) 54.4 % (45.0-75.0) 61.1 % (45.0-75.0) Lymphocytes (%) (Auto) 35.0 % (20.0-45.0) 30.2 % (20.0-45.0) Monocytes (%) (Auto) 7.4 % (1.0-10.0) 7.2 % (1.0-10.0) Eosinophils (%) (Auto) 2.2 % (0.0-3.0) 0.8 % (0.0-3.0) Basophils (%) (Auto) 1.1 % (0.0-2.0) 0.7 % (0.0-2.0) Erythrocyte Sedimentation Rate 34 MM/HR (0-30) H Prothrombin Time 10.2 SEC (9.30-11.50) Prothromb Time International Ratio 1.0 (0.9-1.1) Activated Partial Thromboplast Time 25 SEC (23-33) Sodium Level 138 MMOL/L (136-145) 137 MMOL/L (136-145) Potassium Level 3.9 MMOL/L (3.5-5.1) 4.1 MMOL/L (3.5-5.1) Chloride Level 101 MMOL/L (98-107) 102 MMOL/L (98-107) Carbon Dioxide Level 27 MMOL/L (21-32) 27 MMOL/L (21-32) Anion Gap 10 mmol/L (5-15) 8 mmol/L (5-15) Blood Urea Nitrogen 28 mg/dL (7-18) H 28 mg/dL (7-18) H Creatinine 1.3 MG/DL (0.55-1.30) 1.2 MG/DL (0.55-1.30) Estimat Glomerular Filtration Rate mL/min (>60) mL/min (>60) Glucose Level 216 MG/DL (74-106) H 133 MG/DL (74-106) H Calcium Level 10.0 MG/DL (8.5-10.1) 9.9 MG/DL (8.5-10.1) Total Bilirubin 0.3 MG/DL (0.2-1.0) 0.4 MG/DL (0.2-1.0) Aspartate Amino Transf (AST/SGOT) 23 U/L (15-37) 18 U/L (15-37) Alanine Aminotransferase (ALT/SGPT) 27 U/L (12-78) 21 U/L (12-78) Alkaline Phosphatase 52 U/L (46-116) 49 U/L (46-116) Total Creatine Kinase 42 U/L (26-308) Troponin I 0.024 ng/mL (0.000-0.056) C-Reactive Protein, Quantitative < 0.4 mg/dL (0.00-0.90) Pro-B-Type Natriuretic Peptide 43 pg/mL (0-125) Total Protein 7.7 G/DL (6.4-8.2) 7.6 G/DL (6.4-8.2) Albumin 3.8 G/DL (3.4-5.0) 3.7 G/DL (3.4-5.0) Globulin 3.9 g/dL 3.9 g/dL Albumin/Globulin Ratio 1.0 (1.0-2.7) 0.9 (1.0-2.7) L Thyroid Stimulating Hormone (TSH) 0.561 uiU/mL (0.358-3.740) Urine Color Pale yellow Urine Appearance Clear Urine pH 6.5 (4.5-8.0) Urine Specific [place] 1.015 (1.005-1.035) Urine Protein Negative (NEGATIVE) Urine Glucose (UA) 4+ (NEGATIVE) H Urine Ketones Negative (NEGATIVE) Urine Blood Negative (NEGATIVE) Urine Nitrite Negative (NEGATIVE) Urine Bilirubin Negative (NEGATIVE) Urine Urobilinogen Normal MG/DL (0.0-1.0) Urine Leukocyte Esterase 1+ (NEGATIVE) H Urine RBC 0-2 /HPF (0 - 2) Urine WBC 0-2 /HPF (0 - 2) Urine Squamous Epithelial Cells Few /LPF (NONE/OCC) Urine Bacteria Occasional /HPF (NONE) Hemoglobin A1c 8.0 % (4.3-6.0) H Vitamin B12 Level 933 PG/ML (193-986) Vitamin D 25-Hydroxy Pending 25-Hydroxy Vitamin D2 Pending 25-Hydroxy Vitamin D3 Pending Folate 24.2 NG/ML (8.6-58.9) Rapid Plasma Reagin Pending Shimon Quarles MD Jul 21, 2018 16:06
--- NOTE | 2018-07-21 18:15 | Consultation ---
DATE OF CONSULTATION: 07/21/2018 CONSULTING PHYSICIAN: Bari Eduardo M.D. REFERRING PHYSICIAN: Dante Brewer M.D. REASON FOR CONSULTATION: 1. Acute kidney injury. 2. Dehydration. HISTORY OF PRESENT ILLNESS: The patient is a pleasant 76-year-old female, who was admitted overnight for further evaluation and care of increased headaches in the occipital area. They were severe and constant. No radiation down the neck when it was noted that her creatinine was elevated at 1.3 and her BUN 28. She denies any chest pain. No nausea, vomiting, or diarrhea. No changes in any urinary habits. PAST MEDICAL HISTORY: 1. Diabetes. 2. Hypertension. 3. Headaches. PAST SURGICAL HISTORY: Noncontributory. ALLERGIES: No known drug allergies. SOCIAL HISTORY: No tobacco, alcohol, or illicit drug use. REVIEW OF SYSTEMS: NEUROLOGIC: The patient is complaining of headaches, constant in nature. CARDIOVASCULAR: No current chest pain, palpitations, or angina. PULMONARY: No difficulty breathing, productive cough, or sputum. GASTROINTESTINAL/GENITOURINARY: No change in urine or bowel habits. No nausea, vomiting, or diarrhea. ENDOCRINOLOGY: No night sweats, fevers, or chills. MUSCULOSKELETAL: The patient is feeling tired and fatigued. LABORATORY DATA: Labs dated 07/21/2018, sodium 137, potassium 4.1, BUN 28, creatinine 1.2, and calcium 9.9. Albumin 3.7. TSH 0.5. Hemoglobin 12.6, white cell count 8.3, and platelet count 257,000. PHYSICAL EXAMINATION: VITAL SIGNS: Blood pressure 114/69, respiratory rate 20, pulse 69, temperature 98, and 100% oxygen saturation on room air. GENERAL: The patient is awake, alert, and not otherwise in distress. HEENT: Extraocular muscles intact. No lymphadenopathy noted. CARDIOVASCULAR: S1, S2. No rubs or gallops. PULMONARY: Clear to auscultation bilaterally. No rales, rhonchi, or wheezes. ABDOMINAL: Nondistended and nontender. EXTREMITIES: No edema noted. ASSESSMENT AND PLAN: 1. Acute kidney injury secondary to component of intravascular volume depletion. We will hydrate the patient with 1 liter of normal saline and follow electrolytes carefully. 2. Dehydration. Approximately 1 to 2 liters of volume depletion. We will continue IV fluids. Avoid any nephrotoxins at the time being. No further renal investigations required as long as renal function continues to improve. 3. Severe headaches. Defer management to primary care physician, Dr. Brewer. 4. Diabetes mellitus. The patient is on insulin therapy. Let me take this opportunity to thank Dr. Brewer. I will continue to follow this patient on a daily basis. Bari Eduardo MD DR: TYSON JOB#: [id number] CC:
[2018-07-21 20:00] VITALS: BP 119/69
--- NOTE | 2018-07-21 20:00 | Consultation ---
DATE OF CONSULTATION: 07/21/2018 NEUROLOGY CONSULTATION CONSULTING PHYSICIAN: Ge Medrano M.D. REQUESTING PHYSICIAN: Dante Brewer M.D. HISTORY: Ms. Roland Montiel is a 76-year-old, right-handed, [place] lady, with a past history of hypertension, diabetes mellitus, and closed head trauma a few months ago where she hit her head against a refrigerator. She has had daily headaches for more than a year now, which worsened after her closed head trauma. The headache is a constant pain predominantly in the bioccipital areas, but after it has been there for some time it spreads to involve her entire head. It is a pressure-like sensation. She denies any other neurological symptoms associated with the headaches. She is unable to tell me what exactly she has tried for the headaches. She denies any weakness on one side or the other, numbness on one side or the other, problems with speech, problems with language, problems with vision, problems with memory, or other neurological problems. PAST MEDICAL HISTORY: Significant for hypertension, diabetes mellitus, and closed head trauma. FAMILY HISTORY: Significant for high blood pressure and diabetes mellitus in other family members. PERSONAL HISTORY: Home: She lives with her family. 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 Habits: She denies use of alcohol, tobacco, or illicit drugs. MEDICATIONS: Present medications include insulin, [place] and Zofran. PHYSICAL EXAMINATION: GENERAL: She is a well-developed, well-nourished, [place] lady, lying in bed, in no acute distress. VITAL SIGNS: Pulse 62/minute, blood pressure 103/58 mmHg, respirations 18/minute, and temperature 97.2 degrees Fahrenheit. HEAD: Normocephalic and atraumatic. EENT: Examination benign. NECK: No neck rigidity was observed. She did have G 2/4 cervical paraspinal muscle and trapezius spasm. NEUROLOGIC EXAMINATION: MENTAL STATUS EXAMINATION: She was awake and alert. She was oriented to self, hospital, and 07/21/2018. She did not know the name of the hospital. She was able to recall 3/3 words immediately, but could only remember 2/3 words in 1 minute and 3 minutes. She was unable to tell me who the present President was and who prior presidents were. Her mathematical skills were impaired. Her visuospatial function was also impaired. SPEECH: She had no dysarthria. LANGUAGE: Could not be tested adequately. CRANIAL NERVE EXAMINATION: II: The visual wing were intact on confrontation testing. III, IV, AND : The external ocular movements were full and the pupils 3 mm in diameter, equal, round, regular, and reactive to light. V: She had normal facial sensations, and the temporales, masseters, and pterygoids functioned normally. VII: She had normal facial expressions and no facial asymmetry. VIII: She was able to hear well bilaterally and had no nystagmus. IX: The palate moved symmetrically on phonation. X: She had no hoarseness of voice. XI: The sternocleidomastoids and trapezii functioned normally. XII: The tongue was in the midline without any fasciculations or atrophy. MOTOR SYSTEM: The tone was normal in all four extremities. Examination of muscle mass revealed no focal wasting. Examination of power revealed G 5/5 power in all muscle groups. SENSORY EXAMINATION: She had intact sensations to pinprick, light touch, and graphesthesia. COORDINATION: She performed well on rswfsk-ff-vlod and geme-dj-ybii testing. On Romberg test, she swayed, but did not fall to one side or the other. REFLEXES: Trace+ and bilaterally symmetrical at the biceps, triceps, brachioradialis, and knees. 0 at both ankles. The plantar responses were flexor bilaterally. STANCE: She had a normal stance. GAIT: She had a normal gait. DIAGNOSTIC IMPRESSION: 1. Ms. Roland Montiel is a 76-year-old, right-handed, [place] lady, with a past history of hypertension, diabetes mellitus, and closed head trauma, who a few months ago who hit her head against the refrigerator. She has had a daily headaches for more than a year now, which worsened after her closed head trauma. She was hospitalized for intractable headaches. 2. On neurological examination, at this time, she does have significant G 2/4 cervical paraspinal muscle and trapezius spasm, problems with orientation, memory, visuospatial function and higher cognitive function, but no focal or lateralizing findings. The deep tendon reflexes are globally diminished. 3. A CT scan of the brain without contrast is normal. 4. Laboratory data obtained thus far have revealed a relatively normal CBC, an ESR at 34. Her chemistry panel reveals a minimally elevated BUN at 28 and her glucose was as high as 216 when she came in. Her TSH is normal. Her urinalysis is mildly abnormal with 1+ leukocyte esterase and 0-2 red blood cells and white blood cells per high-power field. 5. The patient's history, neurological examination, laboratory data, and imaging studies are most compatible with muscle contraction headaches of a chronic nature. RECOMMENDATIONS: 1. Agree with management thus far. 2. The patient will be started on Flexeril 10 mg at bedtime after a single dose now. 3. She will also be started on ibuprofen 400 mg tid with meals, which should be stopped after 5 days. 4. She will be observed closely and depending on how she fares over the next day or so, further recommendations will be given. Thank you for entrusting me with the care of Ms. Montiel. I shall follow her with you. Ge Medrano M.D., M.S.P.H. DR: LAURA JOB#: [id number] MTDD
[2018-07-21] MEDS: Cyclobenzaprine 10mg Tab ORAL SCH (21:14)
--- NOTE | 2018-07-21 22:15 | Consultation ---
DATE OF CONSULTATION: 07/21/2018 CARDIOLOGY CONSULTATION CONSULTING PHYSICIAN: Shimon Quarles M.D. REFERRING PHYSICIAN: Dante Brewer MD REASON FOR CONSULTATION: Management of hypertension, elevated troponin, cardiomegaly. HISTORY OF PRESENT ILLNESS: The patient is a 76-year-old lady with history of hypertension, diabetes, and hyperlipidemia, who has been noncompliant presented to the emergency room complaining of 2 to 3 days of severe occipital headache. The patient also complained of generalized weakness, poor appetite, and nausea. Chest x-ray was suggestive of cardiomegaly and pulmonary edema. She was admitted for further evaluation and management. REVIEW OF SYSTEMS: Review of systems was negative other than what is mentioned in the history of present illness. PAST MEDICAL HISTORY: As mentioned above. FAMILY HISTORY: Noncontributory. SOCIAL HISTORY: Denies smoking or drinking alcohol. MEDICATIONS: Per reconciliation. PHYSICAL EXAMINATION: VITAL SIGNS: Blood pressure is 112/63, pulse 75, respirations 18, and she is afebrile. HEAD AND NECK: Shows no JVD. LUNGS: Decreased breath sounds. CARDIOVASCULAR: Regular S1 and S2 with no gallop or murmur. ABDOMEN: Soft. EXTREMITIES: No pitting edema. LABORATORY AND DIAGNOSTIC DATA: Labs show white count of 8.3, hemoglobin of 12.7, hematocrit of 37%, and platelet count 257. Sodium is 137, potassium 4.1, BUN of 28, creatinine 1.2. Troponin 0.024. BNP is only 43. ASSESSMENT AND PLAN: 1. Shortness of breath. The patient also has cardiomegaly however her BNP is only 43. The patient already had echocardiogram, preliminary report showed ejection fraction of 60%. I would start the patient on low-dose Lasix, continue to follow the patient clinically. 2. Troponin leak, still within normal range. We will repeat cardiac enzymes. EKG does not show any acute ischemic changes. 3. Hypertension. Blood pressure currently stable. I will add p.r.n. clonidine to her medical regimen. 4. Diabetes. Thank you very much for allowing me to participate in the care of this patient. Please do not hesitate to contact me for any questions regarding my evaluation. Sincerely, Shimon Quarles M.D. DR: Edu JOB#: [id number] CC:
--- NOTE | 2018-07-21 23:00 | Consultation ---
DATE OF CONSULTATION: 07/21/2018 MEDICAL CONSULTATION TIME SEEN: At 2 p.m. CONSULTING PHYSICIAN: Anthony Hawthorne D.O. CHIEF COMPLAINT: Headache. BRIEF HISTORY: This is a 76-year-old female from Dr. Brewer, presented with 2 to 3 days of increased headache, became occipital, severe, and constant, kept awake at night, no radiation to the neck. The patient was sent to [place], diagnosed with headache and possible CVA, and admitted to the telemetry for further care and treatment. Currently, sitting on chair, calm, slight headache. No complaints. REVIEW OF SYSTEMS: No chest pain. No shortness of breath. No nausea, vomiting, or diarrhea. PAST MEDICAL HISTORY: Diabetes, hypertension, and possible CVA. PAST SURGICAL HISTORY: Unknown. ALLERGIES: Denies. MEDICATIONS: Include amlodipine, atorvastatin, pregabalin, Flexeril, , ibuprofen, insulin aspart, hydrocodone, Zofran, and morphine. SOCIAL HISTORY: No smoke. No alcohol. No intravenous drug abuse. FAMILY HISTORY: Noncontributory. PHYSICAL EXAMINATION: GENERAL: Calm in bed, oriented x3, in slight distress and headache. VITAL SIGNS: Temperature is 97 degrees, pulse 81, respiratory rate 18, and blood pressure 114/66. CARDIOVASCULAR: No murmur. LUNGS: Distant and clear. ABDOMEN: Bowel sounds positive. Soft, nontender, and nondistended. EXTREMITIES: No cyanosis, clubbing, or edema. NEUROLOGIC: The patient moves all extremities, slightly weak. LABORATORY DATA: Labs at this time show CBC is normal. BMP show BUN 28, glucose 133, otherwise BMP is normal. TSH is 0.56. INR is 1.0, PTT is 25. Urinalysis show 1+ leukocyte esterase. ASSESSMENT: 1. Headache. 2. Possible CVA. 3. Diabetes. 4. Hypertension. 5. Glucosuria. PLAN: 1. Continue premeds. 2. Antibiotics as needed. 3. OT, PT, and dietary evaluation. 4. Pain control. 5. Blood sugar and blood pressure control. 6. CBC and CMP in the morning. Anthony Hawthorne D.O. DR: TOMER JOB#: [id number] CC:
--- NOTE | 2018-07-21 23:38 | Cardiology Report ---
APPROVED REPORT EKG Measurement Heart [id number] Normal sinus rhythm Low voltage QRS Cannot rule out Anterior infarct, age undetermined Abnormal ECG
[2018-07-22] VITALS: BP 129/67
[2018-07-22 04:00] VITALS: BP 97/42
[2018-07-22] MEDS: NovoLOG Insulin Flexpen SUBQ SCH ×4 (06:23→21:09)
[2018-07-22 06:43] LABS: EOSINOPHILS % (AUTO) 2.9 % (0.0-3.0); HEMATOCRIT 35.8 % (37.0-47.0); HEMOGLOBIN 12.5 G/DL (12.0-16.0); MEAN CORPUSCULAR VOLUME 88 FL (80-99); MONOCYTES % (AUTO) 8.2 % (1.0-10.0); NEUTROPHILS % (AUTO) 38.9 % (45.0-75.0); PLATELET COUNT 230 K/UL (150-450); RED BLOOD COUNT 4.08 M/UL (4.20-5.40); RED CELL DISTRIBUTION WIDTH 11.5 % (11.6-14.8); WHITE BLOOD COUNT 6.5 K/UL (4.8-10.8)
[2018-07-22 06:52] LABS: ANION GAP 5 mmol/L (5-15); BLOOD UREA NITROGEN 19 mg/dL (7-18); CALCIUM 9.5 MG/DL (8.5-10.1); CARBON DIOXIDE 28 MMOL/L (21-32); CHLORIDE 107 MMOL/L (98-107); CREATININE 0.9 MG/DL (0.55-1.30); POTASSIUM 3.8 MMOL/L (3.5-5.1); SODIUM 140 MMOL/L (136-145)
[2018-07-22 08:00] VITALS: BP 122/69
[2018-07-22] MEDS: sitaGLIPtin 50mg tab ORAL SCH (08:15)
[2018-07-22] MEDS: Lyrica 75mg cap ORAL SCH (08:17)
--- NOTE | 2018-07-22 08:20 | Nephrology Progress Note ---
Assessment/Plan Assessment/Plan A/P 1. RAMIRO- resolved, Cr back to normal range - DC IVFs - prn diuretics for volume control if required 2. Vol Depeltion- resolved. DC IVFs today 3. TO- per PCP mgmt Subjective Date patient seen: Jul 22, 2018 Time patient seen: 08:17 ROS Limited/Unobtainable: No Allergies: Coded Allergies: No Known Allergies (Unverified , 03/09/18) All Systems: reviewed and negative except above Subjective Patient in no overt distress Objective Last 24 Hour Vital Signs Date Time Temp Pulse Resp B/P (MAP) Pulse Ox O2 Delivery O2 Flow Rate FiO2 07/22/18 04:00 97.2 62 20 97/42 (60) 94 97.2 07/22/18 04:00 63 07/22/18 00:00 68 07/22/18 00:00 98.0 68 20 129/67 (87) 94 98.0 07/21/18 21:00 Room Air 07/21/18 20:00 97.3 71 20 119/69 (86) 95 97.3 07/21/18 20:00 76 07/21/18 18:48 98.2 07/21/18 17:49 98.2 07/21/18 16:00 98.2 68 18 114/68 (83) 95 98.2 07/21/18 16:00 64 07/21/18 13:04 97.2 07/21/18 12:33 75 07/21/18 12:05 97.2 07/21/18 12:04 97.2 07/21/18 12:00 97.9 81 18 114/66 (82) 95 97.9 07/21/18 09:00 Room Air Intake and Output 07/21/18 07/22/18 19:00 07:00 Intake Total 360 ml 817 ml Balance 360 ml 817 ml Intake Oral 360 ml 240 ml IV Total 577 ml # Voids 3 3 Laboratory Tests 07/22/18 05:55: White Blood Count 6.5, Red Blood Count 4.08L, Hemoglobin 12.5, Hematocrit 35.8L , Mean Corpuscular Volume 88, Mean Corpuscular Hemoglobin 30.7, Mean Corpuscular Hemoglobin Concent 35.0, Red Cell Distribution Width 11.5L, Platelet Count 230, Mean Platelet Volume 8.3, Neutrophils (%) (Auto) 38.9L, Lymphocytes (%) (Auto) 49.0H, Monocytes (%) (Auto) 8.2, Eosinophils (%) (Auto) 2.9, Basophils (%) (Auto) 1.0, Sodium Level 140, Potassium Level 3.8, Chloride Level 107, Carbon Dioxide Level 28, Anion Gap 5, Blood Urea Nitrogen 19H, Creatinine 0.9, Estimat Glomerular Filtration Rate , Glucose Level 109H, Calcium Level 9.5 Height (Feet): 5 Height (Inches): 5.00 Weight (Pounds): 180 General Appearance: WD/WN, no apparent distress EENT: normal ENT inspection Neck: normal alignment, supple Cardiovascular: normal rate, regular rhythm Respiratory/Chest: lungs clear, normal breath sounds Abdomen: non tender, soft Edema: no edema noted Arm (L), no edema noted Arm (R), no edema noted Leg (L), no edema noted Leg (R), no edema noted Pedal (L), no edema noted Pedal (R), no edema noted Generalized Bari Eduardo MD Jul 22, 2018 08:20
--- NOTE | 2018-07-22 09:22 | General Progress Note ---
Assessment/Plan Assessment/Plan Assessment/Recs: # Failure to thrive - likely related to underlying headache, has been ongoing --> ct of the brain has ruled out brain tumor --> tumor markers from before were negative, has received kumari-scan also negative for malignancy --> outpatient f/u with Dr. Enrique Brewer in heme clinic for hydration on prn basis --> Treatment with IV hydration and analgesics. co-morbidities withe HTN and DM. --> currently off fluids as per renal # Chronic tension headaches - have scanned his brain at this time to rule out massive cva --> have consulted neurology as well to rule out subacute stroke versus other causes --> was given hydration in the office, r/o other causes, DDx: bleed, CVA, tension, migraine, vasculitis, depression, medication side effect, dehydration, encephalitis, viral syndrome, arthritis, post concussive syndrome amongst others. # HTN - sbp gooal less than 140 --> Dr. Quarles has been consulted # Elev trop and cardiomegaly, cards to follow --> IM consulted, Dr. Alexis Hawthorne # Major depressive disorder, single episode, unspecified # Hyperglycemia # Dehydration --> renal consulted --> Bun elevated on admission # Prior infiltrated on cxr - have consulted pulm Appreciate all [facility] consultant care. Subjective Constitutional: Denies: no symptoms, chills, diaphoresis, fever, malaise, weakness, other HEENT: Denies: no symptoms, eye pain, blurred vision, tearing, double vision, ear pain, ear discharge, nose pain, nose congestion, throat pain, throat swelling, mouth pain, mouth swelling, other Cardiovascular: Denies: no symptoms, chest pain, edema, irregular heart rate, lightheadedness, palpitations, syncope, other Respiratory: Denies: no symptoms, cough, orthopnea, shortness of breath, SOB with excertion, SOB at rest, sputum, stridor, wheezing, other Gastrointestinal/Abdominal: Denies: no symptoms, abdomen distended, abdominal pain, black stools, tarry stools, blood in stool, constipated, diarrhea, difficulty swallowing, nausea, poor appetite, poor fluid intake, rectal bleeding , vomiting, other Genitourinary: Denies: no symptoms, burning, discharge, frequency, flank pain, hematuria, incontinence, pain, urgency, other Neurologic/Psychiatric: Denies: no symptoms, anxiety, depressed, emotional problems, headache, numbness, paresthesia, pre-existing deficit, seizure, tingling, tremors, weakness, other Hematologic/Lymphatic: Denies: no symptoms, anemia, easy bleeding, easy bruising, other Allergies: Coded Allergies: No Known Allergies (Unverified , 03/09/18) Subjective no events, no f/c Objective Last 24 Hour Vital Signs Date Time Temp Pulse Resp B/P (MAP) Pulse Ox O2 Delivery O2 Flow Rate FiO2 07/22/18 08:17 97.2 07/22/18 08:17 97.2 07/22/18 08:00 98.2 69 20 122/69 (86) 95 98.2 07/22/18 04:00 97.2 62 20 97/42 (60) 94 97.2 07/22/18 04:00 63 07/22/18 00:00 68 07/22/18 00:00 98.0 68 20 129/67 (87) 94 98.0 07/21/18 21:00 Room Air 07/21/18 20:00 97.3 71 20 119/69 (86) 95 97.3 07/21/18 20:00 76 07/21/18 18:48 98.2 07/21/18 17:49 98.2 07/21/18 16:00 98.2 68 18 114/68 (83) 95 98.2 07/21/18 16:00 64 07/21/18 13:04 97.2 07/21/18 12:33 75 07/21/18 12:05 97.2 07/21/18 12:04 97.2 07/21/18 12:00 97.9 81 18 114/66 (82) 95 97.9 Intake and Output 07/21/18 07/22/18 19:00 07:00 Intake Total 360 ml 817 ml Balance 360 ml 817 ml Intake Oral 360 ml 240 ml IV Total 577 ml # Voids 3 3 Laboratory Tests 07/22/18 05:55: White Blood Count 6.5, Red Blood Count 4.08L, Hemoglobin 12.5, Hematocrit 35.8L , Mean Corpuscular Volume 88, Mean Corpuscular Hemoglobin 30.7, Mean Corpuscular Hemoglobin Concent 35.0, Red Cell Distribution Width 11.5L, Platelet Count 230, Mean Platelet Volume 8.3, Neutrophils (%) (Auto) 38.9L, Lymphocytes (%) (Auto) 49.0H, Monocytes (%) (Auto) 8.2, Eosinophils (%) (Auto) 2.9, Basophils (%) (Auto) 1.0, Sodium Level 140, Potassium Level 3.8, Chloride Level 107, Carbon Dioxide Level 28, Anion Gap 5, Blood Urea Nitrogen 19H, Creatinine 0.9, Estimat Glomerular Filtration Rate , Glucose Level 109H, Calcium Level 9.5 Height (Feet): 5 Height (Inches): 5.00 Weight (Pounds): 180 General Appearance: alert EENT: TMs normal Neck: normal alignment Cardiovascular: normal rate Respiratory/Chest: normal breath sounds Abdomen: no organomegaly Extremities: non-tender Edema: 1+ Leg (L), 1+ Leg (R) Neurologic: alert Skin: warm/dry Osbaldo Brewer MD Jul 22, 2018 09:22
--- NOTE | 2018-07-22 10:00 | Cardiology Report ---
APPROVED REPORT EXAM: Two-dimensional and M-mode echocardiogram with Doppler and color Doppler. INDICATION LV function M-Mode DIMENSIONS IVSd1.3 (0.7-1.1cm)Left Atrium (MM)4.8 (1.6-4.0cm) LVDd4.7 (3.5-5.6cm)Aortic Root3.2 (2.0-3.7cm) PWd1.1 (0.7-1.1cm)Aortic Cusp Exc.1.7 (1.5-2.0cm) LVDs2.9 (2.5-4.0cm) PWs1.2 cm Normal left ventricular chamber size, systolic function and wall motion. Left ventricular ejection fraction estimated to be 60 %. Mild left ventricular hypertrophy. No evidence of pericardial effusion. Left and right atrial sizes at upper limits of normal. Right ventricular chamber size is within normal limits. Focal aortic valve sclerosis with adequate cusp excursion. Thickened mitral valve leaflets with normal excursion. Mitral annulus and aortic root calcification. Pulmonic valve not well visualized. Normal tricuspid valve structure. IVC at normal size with physiologic collapse. A color flow and spectral Doppler study was performed and revealed: Trace aortic regurgitation. Trace mitral regurgitation. Mitral diastolic velocities suggest reduced left ventricular relaxation c/w mild LV diastolic dysfunction (Grade I ). Mild tricuspid regurgitation. Tricuspid systolic velocities suggests peak right ventricular systolic pressure of 43 mmHg, consistent with mild pulmonary hypertension.
--- NOTE | 2018-07-22 11:42 | Pulmonology Progress Note ---
Assessment/Plan Problems: (1) Cardiomegaly (2) Interstitial edema (3) Hyperglycemia (4) Diabetes mellitus (5) Hypertension (6) CVA (cerebral vascular accident) Assessment/Plan on lasix low dose echo noted f/u electrolytes pt/ot dvt propylaxis sliding scale diabetic diet Subjective ROS Limited/Unobtainable: No Constitutional: Reports: no symptoms HEENT: Repors: no symptoms Respiratory: Reports: no symptoms Allergies: Coded Allergies: No Known Allergies (Unverified , 03/09/18) Objective Last 24 Hour Vital Signs Date Time Temp Pulse Resp B/P (MAP) Pulse Ox O2 Delivery O2 Flow Rate FiO2 07/22/18 09:16 97.2 07/22/18 09:16 97.2 07/22/18 09:00 Room Air 07/22/18 08:17 97.2 07/22/18 08:17 97.2 07/22/18 08:00 98.2 69 20 122/69 (86) 95 98.2 07/22/18 08:00 72 07/22/18 04:00 97.2 62 20 97/42 (60) 94 97.2 07/22/18 04:00 63 07/22/18 00:00 68 07/22/18 00:00 98.0 68 20 129/67 (87) 94 98.0 07/21/18 21:00 Room Air 07/21/18 20:00 97.3 71 20 119/69 (86) 95 97.3 07/21/18 20:00 76 07/21/18 17:49 98.2 07/21/18 16:00 98.2 68 18 114/68 (83) 95 98.2 07/21/18 16:00 64 07/21/18 13:04 97.2 07/21/18 12:33 75 07/21/18 12:05 97.2 07/21/18 12:04 97.2 07/21/18 12:00 97.9 81 18 114/66 (82) 95 97.9 Intake and Output 07/21/18 07/22/18 19:00 07:00 Intake Total 360 ml 817 ml Balance 360 ml 817 ml Intake Oral 360 ml 240 ml IV Total 577 ml # Voids 3 3 General Appearance: WD/WN HEENT: normocephalic, atraumatic Respiratory/Chest: chest wall non-tender, lungs clear Breasts: no masses Cardiovascular: normal peripheral pulses Abdomen: normal bowel sounds, no organomegaly Genitourinary: normal external genitalia Extremities: no clubbing Skin: no ulcers Neurologic/Psychiatric: secret code expert II-XII grossly normal Laboratory Tests 07/22/18 05:55: White Blood Count 6.5, Red Blood Count 4.08L, Hemoglobin 12.5, Hematocrit 35.8L , Mean Corpuscular Volume 88, Mean Corpuscular Hemoglobin 30.7, Mean Corpuscular Hemoglobin Concent 35.0, Red Cell Distribution Width 11.5L, Platelet Count 230, Mean Platelet Volume 8.3, Neutrophils (%) (Auto) 38.9L, Lymphocytes (%) (Auto) 49.0H, Monocytes (%) (Auto) 8.2, Eosinophils (%) (Auto) 2.9, Basophils (%) (Auto) 1.0, Sodium Level 140, Potassium Level 3.8, Chloride Level 107, Carbon Dioxide Level 28, Anion Gap 5, Blood Urea Nitrogen 19H, Creatinine 0.9, Estimat Glomerular Filtration Rate , Glucose Level 109H, Calcium Level 9.5 Current Medications Medications (Trade) Dose Ordered Sig/Sarah Route PRN Reason Start Time Stop Time Status Last Admin Dose Admin Acetaminophen/ Hydrocodone Bitart ([place] 5/325) 1 tab Q8H PRN ORAL For Pain 07/20/18 22:30 07/27/18 22:29 07/21/18 03:04 Atorvastatin Calcium (Lipitor) 20 mg DAILY ORAL 07/22/18 09:00 08/21/18 08:59 07/22/18 08:16 Clonidine HCl (Catapres Tab) 0.1 mg EVERY 3 HOURS PRN ORAL sbp>170 07/21/18 16:15 08/20/18 16:14 Cyclobenzaprine HCl (Flexeril) 10 mg BEDTIME ORAL 07/21/18 21:00 08/20/18 20:59 07/21/18 21:14 Dextrose (Dextrose 50%) 25 ml STAT PRN IV Hypoglycemia 07/20/18 23:30 08/19/18 23:29 Dextrose (Dextrose 50%) 50 ml STAT PRN IV Hypoglycemia 07/20/18 23:30 08/19/18 23:29 Escitalopram Oxalate (Lexapro) 10 mg DAILY ORAL 07/21/18 12:30 08/20/18 12:29 07/22/18 08:18 Ibuprofen (Advil) 400 mg THREE TIMES A DAY ORAL 07/21/18 13:00 07/26/18 12:59 07/22/18 08:17 Insulin Aspart (NovoLOG) BEFORE MEALS AND HS SUBQ 07/21/18 06:30 08/20/18 06:29 07/21/18 21:16 Mirtazapine (Remeron) 7.5 mg BEDTIME ORAL 07/21/18 21:00 08/20/18 20:59 07/21/18 21:14 Ondansetron HCl (Zofran) 4 mg Q6H PRN IVP Nausea & Vomiting 07/20/18 22:30 08/19/18 22:29 Polyethylene Glycol (Miralax) 17 gm DAILY PRN ORAL Constipation 07/21/18 13:00 08/20/18 12:59 07/21/18 14:36 Pregabalin (Lyrica) 75 mg DAILY ORAL 07/22/18 09:00 08/21/18 08:59 07/22/18 08:17 Sennosides (Senokot) 1 tab DAILY PRN ORAL Constipation 07/21/18 13:00 08/20/18 12:59 Sitagliptin Phosphate (Januvia) 50 mg DAILY ORAL 07/22/18 09:00 08/21/18 08:59 07/22/18 08:15 Sherlyn Graves MD Jul 22, 2018 11:42
[2018-07-22 12:00] VITALS: BP 130/75
--- NOTE | 2018-07-22 13:48 | General Progress Note ---
Assessment/Plan Problem List: (1) CVA (cerebral vascular accident) ICD Codes: I63.9 - Cerebral infarction, unspecified SNOMED: 228671388 (2) Headache ICD Codes: R51 - Headache SNOMED: 16128377 Qualifiers: Qualified Codes: R51 - Headache (3) Diabetes mellitus ICD Codes: E11.9 - Type 2 diabetes mellitus without complications SNOMED: 81355676 (4) Hypertension ICD Codes: I10 - Essential (primary) hypertension SNOMED: 37530380 Status: stable, progressing Assessment/Plan ot pt diet bp bs pain control cbc bmp am Subjective Constitutional: Reports: weakness Allergies: Coded Allergies: No Known Allergies (Unverified , 03/09/18) All Systems: reviewed and negative except above Subjective sitting calm Objective Last 24 Hour Vital Signs Date Time Temp Pulse Resp B/P (MAP) Pulse Ox O2 Delivery O2 Flow Rate FiO2 07/22/18 13:38 98.3 07/22/18 12:00 64 07/22/18 12:00 98.3 68 20 130/75 (93) 95 98.3 07/22/18 09:16 97.2 07/22/18 09:16 97.2 07/22/18 09:00 Room Air 07/22/18 08:17 97.2 07/22/18 08:17 97.2 07/22/18 08:00 98.2 69 20 122/69 (86) 95 98.2 07/22/18 08:00 72 07/22/18 04:00 97.2 62 20 97/42 (60) 94 97.2 07/22/18 04:00 63 07/22/18 00:00 68 07/22/18 00:00 98.0 68 20 129/67 (87) 94 98.0 07/21/18 21:00 Room Air 07/21/18 20:00 97.3 71 20 119/69 (86) 95 97.3 07/21/18 20:00 76 07/21/18 17:49 98.2 07/21/18 16:00 98.2 68 18 114/68 (83) 95 98.2 07/21/18 16:00 64 Intake and Output 07/21/18 07/22/18 19:00 07:00 Intake Total 360 ml 817 ml Balance 360 ml 817 ml Intake Oral 360 ml 240 ml IV Total 577 ml # Voids 3 3 Laboratory Tests 07/22/18 05:55: White Blood Count 6.5, Red Blood Count 4.08L, Hemoglobin 12.5, Hematocrit 35.8L , Mean Corpuscular Volume 88, Mean Corpuscular Hemoglobin 30.7, Mean Corpuscular Hemoglobin Concent 35.0, Red Cell Distribution Width 11.5L, Platelet Count 230, Mean Platelet Volume 8.3, Neutrophils (%) (Auto) 38.9L, Lymphocytes (%) (Auto) 49.0H, Monocytes (%) (Auto) 8.2, Eosinophils (%) (Auto) 2.9, Basophils (%) (Auto) 1.0, Sodium Level 140, Potassium Level 3.8, Chloride Level 107, Carbon Dioxide Level 28, Anion Gap 5, Blood Urea Nitrogen 19H, Creatinine 0.9, Estimat Glomerular Filtration Rate , Glucose Level 109H, Calcium Level 9.5 Height (Feet): 5 Height (Inches): 5.00 Weight (Pounds): 180 General Appearance: lethargic EENT: normal ENT inspection Neck: normal alignment Cardiovascular: normal peripheral pulses, normal rate, regular rhythm Respiratory/Chest: chest wall non-tender, lungs clear, normal breath sounds Abdomen: normal bowel sounds, non tender, soft Extremities: normal inspection Edema: no edema noted Arm (L), no edema noted Arm (R), no edema noted Leg (L), no edema noted Leg (R), no edema noted Pedal (L), no edema noted Pedal (R), no edema noted Generalized Neurologic: motor weakness Skin: normal pigmentation, warm/dry Anthony Hawthorne DO Jul 22, 2018 13:48
--- NOTE | 2018-07-22 14:20 | Cardiac Electrophysiology PN ---
Assessment/Plan Assessment/Plan 1. Shortness of breath. The patient also has cardiomegaly however her BNP is only 43. The patient already had echocardiogram showed ejection fraction of 60%. Continue Lasix 2. Atypical CP. Troponin within normal range. We will repeat cardiac enzymes. EKG does not show any acute ischemic changes. 3. Hypertension. Blood pressure currently stable on p.r.n. clonidine to her medical regimen. 4. Diabetes. 5. CVA DW RN Subjective Subjective Wants to go home. No CP or SOB. Objective Last 24 Hour Vital Signs Date Time Temp Pulse Resp B/P (MAP) Pulse Ox O2 Delivery O2 Flow Rate FiO2 07/22/18 13:38 98.3 07/22/18 12:00 64 07/22/18 12:00 98.3 68 20 130/75 (93) 95 98.3 07/22/18 09:16 97.2 07/22/18 09:16 97.2 07/22/18 09:00 Room Air 07/22/18 08:17 97.2 07/22/18 08:17 97.2 07/22/18 08:00 98.2 69 20 122/69 (86) 95 98.2 07/22/18 08:00 72 07/22/18 04:00 97.2 62 20 97/42 (60) 94 97.2 07/22/18 04:00 63 07/22/18 00:00 68 07/22/18 00:00 98.0 68 20 129/67 (87) 94 98.0 07/21/18 21:00 Room Air 07/21/18 20:00 97.3 71 20 119/69 (86) 95 97.3 07/21/18 20:00 76 07/21/18 17:49 98.2 07/21/18 16:00 98.2 68 18 114/68 (83) 95 98.2 07/21/18 16:00 64 Intake and Output 07/21/18 07/22/18 19:00 07:00 Intake Total 360 ml 817 ml Balance 360 ml 817 ml Intake Oral 360 ml 240 ml IV Total 577 ml # Voids 3 3 Laboratory Tests Test 07/22/18 05:55 White Blood Count 6.5 K/UL (4.8-10.8) Red Blood Count 4.08 M/UL (4.20-5.40) L Hemoglobin 12.5 G/DL (12.0-16.0) Hematocrit 35.8 % (37.0-47.0) L Mean Corpuscular Volume 88 FL (80-99) Mean Corpuscular Hemoglobin 30.7 PG (27.0-31.0) Mean Corpuscular Hemoglobin Concent 35.0 G/DL (32.0-36.0) Red Cell Distribution Width 11.5 % (11.6-14.8) L Platelet Count 230 K/UL (150-450) Mean Platelet Volume 8.3 FL (6.5-10.1) Neutrophils (%) (Auto) 38.9 % (45.0-75.0) L Lymphocytes (%) (Auto) 49.0 % (20.0-45.0) H Monocytes (%) (Auto) 8.2 % (1.0-10.0) Eosinophils (%) (Auto) 2.9 % (0.0-3.0) Basophils (%) (Auto) 1.0 % (0.0-2.0) Sodium Level 140 MMOL/L (136-145) Potassium Level 3.8 MMOL/L (3.5-5.1) Chloride Level 107 MMOL/L (98-107) Carbon Dioxide Level 28 MMOL/L (21-32) Anion Gap 5 mmol/L (5-15) Blood Urea Nitrogen 19 mg/dL (7-18) H Creatinine 0.9 MG/DL (0.55-1.30) Estimat Glomerular Filtration Rate mL/min (>60) Glucose Level 109 MG/DL (74-106) H Calcium Level 9.5 MG/DL (8.5-10.1) Objective HEAD AND NECK: Shows no JVD. LUNGS: Decreased breath sounds. CARDIOVASCULAR: Regular S1 and S2 with no gallop or murmur. ABDOMEN: Soft. EXTREMITIES: No pitting edema. Shimon Quarles MD Jul 22, 2018 14:20
--- NOTE | 2018-07-22 14:39 | Neurology Progress Note ---
Interim History Interim History Interim History feels better today. Her headache has finally improved but not gone away. She is tolerating her new headache medicines well except for mild morning drowsiness. She denies any new neurologic symptoms. She is eager to go home. Review of Systems Neuro Review of Systems Benign. Objective Physical Exam Last Vital Signs Date Time Temp Pulse Resp B/P (MAP) Pulse Ox O2 Delivery O2 Flow Rate FiO2 07/22/18 13:38 98.3 07/22/18 12:00 64 07/22/18 12:00 20 130/75 (93) 95 07/22/18 09:00 Room Air Laboratory Tests Test 07/22/18 05:55 White Blood Count 6.5 K/UL (4.8-10.8) Red Blood Count 4.08 M/UL (4.20-5.40) L Hemoglobin 12.5 G/DL (12.0-16.0) Hematocrit 35.8 % (37.0-47.0) L Mean Corpuscular Volume 88 FL (80-99) Mean Corpuscular Hemoglobin 30.7 PG (27.0-31.0) Mean Corpuscular Hemoglobin Concent 35.0 G/DL (32.0-36.0) Red Cell Distribution Width 11.5 % (11.6-14.8) L Platelet Count 230 K/UL (150-450) Mean Platelet Volume 8.3 FL (6.5-10.1) Neutrophils (%) (Auto) 38.9 % (45.0-75.0) L Lymphocytes (%) (Auto) 49.0 % (20.0-45.0) H Monocytes (%) (Auto) 8.2 % (1.0-10.0) Eosinophils (%) (Auto) 2.9 % (0.0-3.0) Basophils (%) (Auto) 1.0 % (0.0-2.0) Sodium Level 140 MMOL/L (136-145) Potassium Level 3.8 MMOL/L (3.5-5.1) Chloride Level 107 MMOL/L (98-107) Carbon Dioxide Level 28 MMOL/L (21-32) Anion Gap 5 mmol/L (5-15) Blood Urea Nitrogen 19 mg/dL (7-18) H Creatinine 0.9 MG/DL (0.55-1.30) Estimat Glomerular Filtration Rate mL/min (>60) Glucose Level 109 MG/DL (74-106) H Calcium Level 9.5 MG/DL (8.5-10.1) Neurologic Exam Objective PHYSICAL EXAMINATION: GENERAL: She is a well-developed, well-nourished, [place] lady, lying in bed, in no acute distress. HEAD: Normocephalic and atraumatic. EENT: Examination benign. NECK: No neck rigidity was observed. She did have G 1/4 cervical paraspinal muscle and trapezius spasm. NEUROLOGIC EXAMINATION: MENTAL STATUS EXAMINATION: She was awake and alert. She was oriented to self, hospital, and 07/22/2018. She did not know the name of the hospital. She was able to recall 3/3 words immediately, but could only remember 2/3 words in 1 minute and 3 minutes. She was unable to tell me who the present President was and who prior presidents were. Her mathematical skills were impaired. Her visuospatial function was also impaired. SPEECH: She had no dysarthria. LANGUAGE: Could not be tested adequately. CRANIAL NERVE EXAMINATION: II: The visual wing were intact on confrontation testing. III, IV, AND : The external ocular movements were full and the pupils 3 mm in diameter, equal, round, regular, and reactive to light. V: She had normal facial sensations, and the temporales, masseters, and pterygoids functioned normally. VII: She had normal facial expressions and no facial asymmetry. VIII: She was able to hear well bilaterally and had no nystagmus. IX: The palate moved symmetrically on phonation. X: She had no hoarseness of voice. XI: The sternocleidomastoids and trapezii functioned normally. XII: The tongue was in the midline without any fasciculations or atrophy. MOTOR SYSTEM: The tone was normal in all four extremities. Examination of muscle mass revealed no focal wasting. Examination of power revealed G 5/5 power in all muscle groups. SENSORY EXAMINATION: She had intact sensations to pinprick, light touch, and graphesthesia. COORDINATION: She performed well on [id number] and [id number] testing. On Romberg test, she swayed, but did not fall to one side or the other. REFLEXES: Trace+ and bilaterally symmetrical at the biceps, triceps, brachioradialis, and knees. 0 at both ankles. The plantar responses were flexor bilaterally. STANCE: She had a normal stance. GAIT: She had a normal gait. Impression/Recommendations Diagnostic Impression 1. Ms. Roland Montiel is a 76-year-old, right-handed, [place] lady, with a past history of hypertension, diabetes mellitus, and closed head trauma, who a few months ago who hit her head against the refrigerator. She has had a daily headaches for more than a year now, which worsened after her closed head trauma. She was hospitalized for intractable headaches. 2. He feels better today. Her headache has finally improved but not gone away. She is tolerating her new headache medicines well except for mild morning drowsiness. She denies any new neurologic symptoms. She is eager to go home. 3. On neurological examination, at this time, she does have mild G 1/4 cervical paraspinal muscle and trapezius spasm, problems with orientation, memory, visuospatial function and higher cognitive function, but no focal or lateralizing findings. The deep tendon reflexes are globally diminished. 4. A CT scan of the brain without contrast is normal. 5. Laboratory data obtained thus far have revealed a relatively normal CBC, an ESR at 34. Her chemistry panel reveals a minimally elevated BUN at 28 and her glucose was as high as 216 when she came in. Her TSH is normal. Her urinalysis is mildly abnormal with 1+ leukocyte esterase and 0-2 red blood cells and white blood cells per high-power field. 6. The patient's history, neurological examination, laboratory data, and imaging studies are most compatible with muscle contraction headaches of a chronic nature. Her headache is responding to Flexeril and Ibuprofen. RECOMMENDATIONS: 1. Agree with management thus far. 2. The patient will be started on Flexeril 10 mg at bedtime after a single dose now. 3. She will also be started on ibuprofen 400 mg tid with meals, which should be stopped after 5 days. 4. She will be observed closely and depending on how she fares over the next day or so, further recommendations will be given. Thank you for entrusting me with the care of Ms. Montiel. I shall follow her with you. Deana Medrano M.D., M.S.P.H. Recommendations 1. Continue present management. 2. Continue Flexeril 10 mg q HS. 3. Continue ibuprofen 400 mg tid with meals for a total of 5 days. 4. Observe closely. Deana Medrano M.D., M.S.P.H. DEANA MEDRANO Jul 22, 2018 14:39
[2018-07-22 15:50] VITALS: BP 128/81
[2018-07-22 20:00] VITALS: BP 143/77
[2018-07-22] MEDS: Cyclobenzaprine 10mg Tab ORAL SCH (21:07)
[2018-07-23] VITALS: BP 130/60
[2018-07-23] MEDS: Norco 5mg/325mg tab ORAL PRN (02:39)
[2018-07-23 03:26] LABS: EOSINOPHILS % (AUTO) 3.2 % (0.0-3.0); HEMATOCRIT 37.4 % (37.0-47.0); HEMOGLOBIN 12.5 G/DL (12.0-16.0); LYMPHOCYTES % (AUTO) 41.1 % (20.0-45.0); MEAN CORPUSCULAR VOLUME 88 FL (80-99); NEUTROPHILS % (AUTO) 46.6 % (45.0-75.0); PLATELET COUNT 233 K/UL (150-450); RED BLOOD COUNT 4.27 M/UL (4.20-5.40); RED CELL DISTRIBUTION WIDTH 11.3 % (11.6-14.8); WHITE BLOOD COUNT 6.7 K/UL (4.8-10.8)
[2018-07-23 04:00] VITALS: BP 122/81
[2018-07-23 04:00] LABS: ANION GAP 7 mmol/L (5-15); BLOOD UREA NITROGEN 22 mg/dL (7-18); CALCIUM 9.5 MG/DL (8.5-10.1); CARBON DIOXIDE 28 MMOL/L (21-32); CHLORIDE 108 MMOL/L (98-107); POTASSIUM 4.2 MMOL/L (3.5-5.1); SODIUM 143 MMOL/L (136-145)
[2018-07-23] MEDS: NovoLOG Insulin Flexpen SUBQ SCH ×3 (06:30→17:12)
--- NOTE | 2018-07-23 07:34 | Pulmonology Progress Note ---
Assessment/Plan Assessment/Plan ASSESSMENT acute kidney injury likely secondary to intravascular volume depletion dehydration Chronic muscle contraction headache, recently increased in severity Cardiomegaly Diabetes mellitus Hypertension History of CVA Mild pulmonary hypertension Major depressive disorder Anxiety disorder PLAN of CARE telemetry floor CT of the head - no acute intracranial pathology neurologist follows according to neurologist , patient on had chronic muscle contraction headache recently increased in intensity started on Flexeril and Ibuprofen for 5 days gentle IV hydration nephrology follows monitor renal parameters , electrolytes , correct electrolytes prn avoid nephrotoxins RAMIRO resolved- likely due to dehydration BP management with CCB continue statin BS management with SSI prn, stable, hemoglobin A1c-8.0 not at goal, need tighter BS control as outpatient ECHO with pEF of 60% and RVSP of 40, c/w mild pulm HTN CXR with cardiomegaly, proBNP only 43 Cardio follows troponin negative psychiatry follows, on Lexapro RO/ST provided by psych pain management prn PT/OT bowel regimen instituted supportive care stable dc plan per PMD case discussed and evaluated by supervising physician Subjective Allergies: Coded Allergies: No Known Allergies (Unverified , 03/09/18) Subjective denies chest pain, SOB wants to go home Objective Last 24 Hour Vital Signs Date Time Temp Pulse Resp B/P (MAP) Pulse Ox O2 Delivery O2 Flow Rate FiO2 07/23/18 04:00 98.0 71 19 122/81 (95) 95 98.0 07/23/18 04:00 68 07/23/18 03:38 97.9 07/23/18 02:39 97.9 07/23/18 00:00 97.9 69 19 130/60 (83) 95 97.9 07/23/18 00:00 74 07/22/18 22:06 97.8 07/22/18 21:07 97.8 07/22/18 21:00 Room Air 07/22/18 20:00 97.2 74 18 143/77 (99) 95 97.2 07/22/18 20:00 74 07/22/18 18:36 97.8 07/22/18 17:37 97.8 07/22/18 16:00 67 07/22/18 15:50 97.8 70 20 128/81 (97) 95 97.8 07/22/18 13:38 98.3 07/22/18 12:00 64 07/22/18 12:00 98.3 68 20 130/75 (93) 95 98.3 07/22/18 09:16 97.2 07/22/18 09:00 Room Air 07/22/18 08:17 97.2 07/22/18 08:17 97.2 07/22/18 08:00 98.2 69 20 122/69 (86) 95 98.2 07/22/18 08:00 72 Intake and Output 07/22/18 07/23/18 19:00 07:00 Intake Total 780 ml Balance 780 ml Intake Oral 780 ml # Voids 1 2 General Appearance: no acute distress, other - awake, alert, responsive HEENT: normocephalic, atraumatic, anicteric Respiratory/Chest: lungs clear, no respiratory distress, no accessory muscle use Cardiovascular: normal rate, regular rhythm - SR on tele , no JVD Abdomen: normal bowel sounds, soft, non tender, non distended Extremities: no edema, pedal pulses normal Neurologic/Psychiatric: alert, responsive Musculoskeletal: normal muscle bulk Laboratory Tests 07/22/18 19:10: Troponin I 0.023 07/23/18 03:10: Troponin I 0.022, White Blood Count 6.7, Red Blood Count 4.27, Hemoglobin 12.5, Hematocrit 37.4, Mean Corpuscular Volume 88, Mean Corpuscular Hemoglobin 29.2, Mean Corpuscular Hemoglobin Concent 33.4, Red Cell Distribution Width 11.3L, Platelet Count 233, Mean Platelet Volume 7.7, Neutrophils (%) (Auto) 46.6, Lymphocytes (%) (Auto) 41.1, Monocytes (%) (Auto) 8.0, Eosinophils (%) (Auto) 3.2H, Basophils (%) (Auto) 1.0, Sodium Level 143, Potassium Level 4.2, Chloride Level 108H, Carbon Dioxide Level 28, Anion Gap 7, Blood Urea Nitrogen 22H, Creatinine 1.0, Estimat Glomerular Filtration Rate , Glucose Level 131H, Calcium Level 9.5 Current Medications Medications (Trade) Dose Ordered Sig/Sarah Route PRN Reason Start Time Stop Time Status Last Admin Dose Admin Acetaminophen/ Hydrocodone Bitart ([place] 5/325) 1 tab Q8H PRN ORAL For Pain 07/20/18 22:30 07/27/18 22:29 07/23/18 02:39 Atorvastatin Calcium (Lipitor) 20 mg DAILY ORAL 07/22/18 09:00 08/21/18 08:59 07/22/18 08:16 Clonidine HCl (Catapres Tab) 0.1 mg EVERY 3 HOURS PRN ORAL sbp>170 07/21/18 16:15 08/20/18 16:14 Cyclobenzaprine HCl (Flexeril) 10 mg BEDTIME ORAL 07/21/18 21:00 08/20/18 20:59 07/22/18 21:07 Dextrose (Dextrose 50%) 25 ml STAT PRN IV Hypoglycemia 07/20/18 23:30 08/19/18 23:29 Dextrose (Dextrose 50%) 50 ml STAT PRN IV Hypoglycemia 07/20/18 23:30 08/19/18 23:29 Escitalopram Oxalate (Lexapro) 10 mg DAILY ORAL 07/21/18 12:30 08/20/18 12:29 07/22/18 08:18 Ibuprofen (Advil) 400 mg THREE TIMES A DAY ORAL 07/21/18 13:00 07/26/18 12:59 07/22/18 17:37 Insulin Aspart (NovoLOG) BEFORE MEALS AND HS SUBQ 07/21/18 06:30 08/20/18 06:29 07/23/18 06:30 Mirtazapine (Remeron) 7.5 mg BEDTIME ORAL 07/21/18 21:00 08/20/18 20:59 07/22/18 21:07 Ondansetron HCl (Zofran) 4 mg Q6H PRN IVP Nausea & Vomiting 07/20/18 22:30 08/19/18 22:29 Polyethylene Glycol (Miralax) 17 gm DAILY PRN ORAL Constipation 07/21/18 13:00 08/20/18 12:59 07/21/18 14:36 Pregabalin (Lyrica) 75 mg DAILY ORAL 07/22/18 09:00 08/21/18 08:59 07/22/18 08:17 Sennosides (Senokot) 1 tab DAILY PRN ORAL Constipation 07/21/18 13:00 08/20/18 12:59 Sitagliptin Phosphate (Januvia) 50 mg DAILY ORAL 07/22/18 09:00 08/21/18 08:59 07/22/18 08:15 Audrey Morales NP Jul 23, 2018 07:34
[2018-07-23 08:00] VITALS: BP 149/90
--- NOTE | 2018-07-23 08:29 | Nephrology Progress Note ---
Assessment/Plan Assessment/Plan A/P 1. RAMIRO- resolved - Cr 1. OK for DC from renal point 2. Vol Depeltion- resolved. 3. TO- per PCP mgmt Subjective Date patient seen: Jul 23, 2018 Time patient seen: 08:27 ROS Limited/Unobtainable: No Allergies: Coded Allergies: No Known Allergies (Unverified , 03/09/18) All Systems: reviewed and negative except above Subjective Patient doing well. No complaints Objective Last 24 Hour Vital Signs Date Time Temp Pulse Resp B/P (MAP) Pulse Ox O2 Delivery O2 Flow Rate FiO2 07/23/18 04:00 98.0 71 19 122/81 (95) 95 98.0 07/23/18 04:00 68 07/23/18 03:38 97.9 07/23/18 02:39 97.9 07/23/18 00:00 97.9 69 19 130/60 (83) 95 97.9 07/23/18 00:00 74 07/22/18 22:06 97.8 07/22/18 21:07 97.8 07/22/18 21:00 Room Air 07/22/18 20:00 97.2 74 18 143/77 (99) 95 97.2 07/22/18 20:00 74 07/22/18 18:36 97.8 07/22/18 17:37 97.8 07/22/18 16:00 67 07/22/18 15:50 97.8 70 20 128/81 (97) 95 97.8 07/22/18 13:38 98.3 07/22/18 12:00 64 07/22/18 12:00 98.3 68 20 130/75 (93) 95 98.3 07/22/18 09:16 97.2 07/22/18 09:00 Room Air Intake and Output 07/22/18 07/23/18 19:00 07:00 Intake Total 780 ml Balance 780 ml Intake Oral 780 ml # Voids 1 2 Laboratory Tests 07/22/18 19:10: Troponin I 0.023 07/23/18 03:10: Troponin I 0.022, White Blood Count 6.7, Red Blood Count 4.27, Hemoglobin 12.5, Hematocrit 37.4, Mean Corpuscular Volume 88, Mean Corpuscular Hemoglobin 29.2, Mean Corpuscular Hemoglobin Concent 33.4, Red Cell Distribution Width 11.3L, Platelet Count 233, Mean Platelet Volume 7.7, Neutrophils (%) (Auto) 46.6, Lymphocytes (%) (Auto) 41.1, Monocytes (%) (Auto) 8.0, Eosinophils (%) (Auto) 3.2H, Basophils (%) (Auto) 1.0, Sodium Level 143, Potassium Level 4.2, Chloride Level 108H, Carbon Dioxide Level 28, Anion Gap 7, Blood Urea Nitrogen 22H, Creatinine 1.0, Estimat Glomerular Filtration Rate , Glucose Level 131H, Calcium Level 9.5 Height (Feet): 5 Height (Inches): 5.00 Weight (Pounds): 180 General Appearance: WD/WN, no apparent distress EENT: normal ENT inspection Neck: normal alignment, supple Cardiovascular: normal rate, regular rhythm Respiratory/Chest: lungs clear, normal breath sounds Abdomen: non tender, soft Edema: no edema noted Arm (L), no edema noted Arm (R), no edema noted Leg (L), no edema noted Leg (R), no edema noted Pedal (L), no edema noted Pedal (R), no edema noted Generalized Bari Eduardo MD Jul 23, 2018 08:29
[2018-07-23] MEDS: sitaGLIPtin 50mg tab ORAL SCH (09:11)
[2018-07-23] MEDS: Lyrica 75mg cap ORAL SCH (09:13)
--- NOTE | 2018-07-23 09:28 | General Progress Note ---
Assessment/Plan Problem List: (1) CVA (cerebral vascular accident) ICD Codes: I63.9 - Cerebral infarction, unspecified SNOMED: 716680780 (2) Headache ICD Codes: R51 - Headache SNOMED: 65314215 Qualifiers: Qualified Codes: R51 - Headache (3) Diabetes mellitus ICD Codes: E11.9 - Type 2 diabetes mellitus without complications SNOMED: 23043967 (4) Hypertension ICD Codes: I10 - Essential (primary) hypertension SNOMED: 36399957 Status: stable, progressing Assessment/Plan ot pt diet bp bs pain control cbc bmp am Subjective Constitutional: Reports: weakness Allergies: Coded Allergies: No Known Allergies (Unverified , 03/09/18) All Systems: reviewed and negative except above Subjective sitting calm Objective Last 24 Hour Vital Signs Date Time Temp Pulse Resp B/P (MAP) Pulse Ox O2 Delivery O2 Flow Rate FiO2 07/23/18 08:00 97.2 72 19 149/90 (109) 94 97.2 07/23/18 04:00 98.0 71 19 122/81 (95) 95 98.0 07/23/18 04:00 68 07/23/18 03:38 97.9 07/23/18 02:39 97.9 07/23/18 00:00 97.9 69 19 130/60 (83) 95 97.9 07/23/18 00:00 74 07/22/18 22:06 97.8 07/22/18 21:07 97.8 07/22/18 21:00 Room Air 07/22/18 20:00 97.2 74 18 143/77 (99) 95 97.2 07/22/18 20:00 74 07/22/18 18:36 97.8 07/22/18 17:37 97.8 07/22/18 16:00 67 07/22/18 15:50 97.8 70 20 128/81 (97) 95 97.8 07/22/18 13:38 98.3 07/22/18 12:00 64 07/22/18 12:00 98.3 68 20 130/75 (93) 95 98.3 Intake and Output 07/22/18 07/23/18 19:00 07:00 Intake Total 780 ml Balance 780 ml Intake Oral 780 ml # Voids 1 2 Laboratory Tests 07/22/18 19:10: Troponin I 0.023 07/23/18 03:10: Troponin I 0.022, White Blood Count 6.7, Red Blood Count 4.27, Hemoglobin 12.5, Hematocrit 37.4, Mean Corpuscular Volume 88, Mean Corpuscular Hemoglobin 29.2, Mean Corpuscular Hemoglobin Concent 33.4, Red Cell Distribution Width 11.3L, Platelet Count 233, Mean Platelet Volume 7.7, Neutrophils (%) (Auto) 46.6, Lymphocytes (%) (Auto) 41.1, Monocytes (%) (Auto) 8.0, Eosinophils (%) (Auto) 3.2H, Basophils (%) (Auto) 1.0, Sodium Level 143, Potassium Level 4.2, Chloride Level 108H, Carbon Dioxide Level 28, Anion Gap 7, Blood Urea Nitrogen 22H, Creatinine 1.0, Estimat Glomerular Filtration Rate , Glucose Level 131H, Calcium Level 9.5 Height (Feet): 5 Height (Inches): 5.00 Weight (Pounds): 180 General Appearance: lethargic EENT: normal ENT inspection Neck: normal alignment Cardiovascular: normal peripheral pulses, normal rate, regular rhythm Respiratory/Chest: chest wall non-tender, lungs clear, normal breath sounds Abdomen: normal bowel sounds, non tender, soft Extremities: normal inspection Edema: no edema noted Arm (L), no edema noted Arm (R), no edema noted Leg (L), no edema noted Leg (R), no edema noted Pedal (L), no edema noted Pedal (R), no edema noted Generalized Neurologic: motor weakness Skin: normal pigmentation, warm/dry Anthony Hawthorne DO Jul 23, 2018 09:28
[2018-07-23 12:00] VITALS: BP 144/77
--- NOTE | 2018-07-23 13:51 | Neurology Progress Note ---
Interim History Interim History Interim History feels much better. Her headache has improved significantly and she has a barely perceptible headache. She is tolerating her new headache medicines well with no drowsiness. She denies any new neurologic symptoms. She is eager to go home. Review of Systems Neuro Review of Systems Benign. Objective Physical Exam Last Vital Signs Date Time Temp Pulse Resp B/P (MAP) Pulse Ox O2 Delivery O2 Flow Rate FiO2 07/23/18 12:00 78 07/23/18 12:00 98.6 20 144/77 (99) 95 98.6 07/23/18 09:00 Room Air Laboratory Tests Test 07/22/18 19:10 07/23/18 03:10 Troponin I 0.023 ng/mL (0.000-0.056) 0.022 ng/mL (0.000-0.056) White Blood Count 6.7 K/UL (4.8-10.8) Red Blood Count 4.27 M/UL (4.20-5.40) Hemoglobin 12.5 G/DL (12.0-16.0) Hematocrit 37.4 % (37.0-47.0) Mean Corpuscular Volume 88 FL (80-99) Mean Corpuscular Hemoglobin 29.2 PG (27.0-31.0) Mean Corpuscular Hemoglobin Concent 33.4 G/DL (32.0-36.0) Red Cell Distribution Width 11.3 % (11.6-14.8) L Platelet Count 233 K/UL (150-450) Mean Platelet Volume 7.7 FL (6.5-10.1) Neutrophils (%) (Auto) 46.6 % (45.0-75.0) Lymphocytes (%) (Auto) 41.1 % (20.0-45.0) Monocytes (%) (Auto) 8.0 % (1.0-10.0) Eosinophils (%) (Auto) 3.2 % (0.0-3.0) H Basophils (%) (Auto) 1.0 % (0.0-2.0) Sodium Level 143 MMOL/L (136-145) Potassium Level 4.2 MMOL/L (3.5-5.1) Chloride Level 108 MMOL/L (98-107) H Carbon Dioxide Level 28 MMOL/L (21-32) Anion Gap 7 mmol/L (5-15) Blood Urea Nitrogen 22 mg/dL (7-18) H Creatinine 1.0 MG/DL (0.55-1.30) Estimat Glomerular Filtration Rate mL/min (>60) Glucose Level 131 MG/DL (74-106) H Calcium Level 9.5 MG/DL (8.5-10.1) Neurologic Exam Objective PHYSICAL EXAMINATION: GENERAL: She is a well-developed, well-nourished, [place] lady, lying in bed, in no acute distress. HEAD: Normocephalic and atraumatic. EENT: Examination benign. NECK: No neck rigidity was observed. She did have G Trace/4 cervical paraspinal muscle and trapezius spasm. NEUROLOGIC EXAMINATION: MENTAL STATUS EXAMINATION: She was awake and alert. She was oriented to person, place and time. She was able to recall 3/3 words immediately, but could only remember 2/3 words in 1 minute and 3 minutes. She was unable to tell me who the present President was and who prior presidents were. Her mathematical skills were impaired. Her visuospatial function was also impaired. SPEECH: She had no dysarthria. LANGUAGE: Could not be tested adequately. CRANIAL NERVE EXAMINATION: II: The visual wing were intact on confrontation testing. III, IV & : The external ocular movements were full and the pupils 3 mm in diameter, equal, round, regular, and reactive to light. V: She had normal facial sensations, and the temporales, masseters, and pterygoids functioned normally. VII: She had normal facial expressions and no facial asymmetry. VIII: She was able to hear well bilaterally and had no nystagmus. IX: The palate moved symmetrically on phonation. X: She had no hoarseness of voice. XI: The sternocleidomastoids and trapezii functioned normally. XII: The tongue was in the midline without any fasciculations or atrophy. MOTOR SYSTEM: The tone was normal in all four extremities. Examination of muscle mass revealed no focal wasting. Examination of power revealed G 5/5 power in all muscle groups. SENSORY EXAMINATION: She had intact sensations to pinprick, light touch, and graphesthesia. COORDINATION: She performed well on yofssq-md-mqtn and wfwv-wc-grdn testing. On Romberg test, she swayed, but did not fall to one side or the other. REFLEXES: Trace+ and bilaterally symmetrical at the biceps, triceps, brachioradialis, and knees. 0 at both ankles. The plantar responses were flexor bilaterally. STANCE: She had a normal stance. GAIT: She had a normal gait. Impression/Recommendations Diagnostic Impression 1. Ms. Roland Montiel is a 76-year-old, right-handed, [place] lady, with a past history of hypertension, diabetes mellitus, and closed head trauma, who a few months ago who hit her head against the refrigerator. She has had a daily headaches for more than a year now, which worsened after her closed head trauma. She was hospitalized for intractable headaches. 2. He feels much better. Her headache has improved significantly and she has a barely perceptible headache. She is tolerating her new headache medicines well with no drowsiness. She denies any new neurologic symptoms. She is eager to go home. 3. On neurological examination, at this time, she does have mild G 1/4 cervical paraspinal muscle and trapezius spasm, problems with orientation, memory, visuospatial function and higher cognitive function, but no focal or lateralizing findings. The deep tendon reflexes are globally diminished. 4. A CT scan of the brain without contrast is normal. 5. Laboratory data obtained thus far have revealed a relatively normal CBC, an ESR at 34. Her chemistry panel reveals a minimally elevated BUN at 28 and her glucose was as high as 216 when she came in. Her TSH is normal. Her urinalysis is mildly abnormal with 1+ leukocyte esterase and 0-2 red blood cells and white blood cells per high-power field. 6. The patient's history, neurological examination, laboratory data, and imaging studies are most compatible with muscle contraction headaches of a chronic nature. Her headache is responding to Flexeril and Ibuprofen. Recommendations 1. Continue present management. 2. Continue Flexeril 10 mg q HS. 3. Continue ibuprofen 400 mg tid with meals for a total of 5 days. 4. Can be discharged home from a neurologic point of view. Deana Medrano M.D., M.S.P.Vlad. DEANA MEDRANO Jul 23, 2018 13:51
[2018-07-23 16:00] VITALS: BP 161/93
[2018-07-23] MEDS ORDERED: NS 275ml ONE (16:41)
[2018-07-23] MEDS ORDERED: 1/2 NS 1000ml IV ONE (16:41)
--- NOTE | 2018-07-23 16:55 | Cardiac Electrophysiology PN ---
Assessment/Plan Assessment/Plan 1. Shortness of breath. BNP is only 43. Echocardiogram showed ejection fraction of 60%. Continue Lasix 2. Atypical CP. Troponin within normal range. EKG does not show any acute ischemic changes. 3. Hypertension. Blood pressure currently stable on p.r.n. clonidine 4. Diabetes. 5. CVA DW RN Subjective Subjective No CP or SOB.In SR. DC planning in progress Objective Last 24 Hour Vital Signs Date Time Temp Pulse Resp B/P (MAP) Pulse Ox O2 Delivery O2 Flow Rate FiO2 07/23/18 16:00 68 07/23/18 12:00 78 07/23/18 12:00 98.6 75 20 144/77 (99) 95 98.6 07/23/18 09:00 Room Air 07/23/18 08:00 63 07/23/18 08:00 97.2 72 19 149/90 (109) 94 97.2 07/23/18 04:00 98.0 71 19 122/81 (95) 95 98.0 07/23/18 04:00 68 07/23/18 03:38 97.9 07/23/18 02:39 97.9 07/23/18 00:00 97.9 69 19 130/60 (83) 95 97.9 07/23/18 00:00 74 07/22/18 22:06 97.8 07/22/18 21:07 97.8 07/22/18 21:00 Room Air 07/22/18 20:00 97.2 74 18 143/77 (99) 95 97.2 07/22/18 20:00 74 07/22/18 18:36 97.8 07/22/18 17:37 97.8 Intake and Output 07/22/18 07/23/18 19:00 07:00 Intake Total 780 ml Balance 780 ml Intake Oral 780 ml # Voids 1 2 Laboratory Tests Test 07/22/18 19:10 07/23/18 03:10 Troponin I 0.023 ng/mL (0.000-0.056) 0.022 ng/mL (0.000-0.056) White Blood Count 6.7 K/UL (4.8-10.8) Red Blood Count 4.27 M/UL (4.20-5.40) Hemoglobin 12.5 G/DL (12.0-16.0) Hematocrit 37.4 % (37.0-47.0) Mean Corpuscular Volume 88 FL (80-99) Mean Corpuscular Hemoglobin 29.2 PG (27.0-31.0) Mean Corpuscular Hemoglobin Concent 33.4 G/DL (32.0-36.0) Red Cell Distribution Width 11.3 % (11.6-14.8) L Platelet Count 233 K/UL (150-450) Mean Platelet Volume 7.7 FL (6.5-10.1) Neutrophils (%) (Auto) 46.6 % (45.0-75.0) Lymphocytes (%) (Auto) 41.1 % (20.0-45.0) Monocytes (%) (Auto) 8.0 % (1.0-10.0) Eosinophils (%) (Auto) 3.2 % (0.0-3.0) H Basophils (%) (Auto) 1.0 % (0.0-2.0) Sodium Level 143 MMOL/L (136-145) Potassium Level 4.2 MMOL/L (3.5-5.1) Chloride Level 108 MMOL/L (98-107) H Carbon Dioxide Level 28 MMOL/L (21-32) Anion Gap 7 mmol/L (5-15) Blood Urea Nitrogen 22 mg/dL (7-18) H Creatinine 1.0 MG/DL (0.55-1.30) Estimat Glomerular Filtration Rate mL/min (>60) Glucose Level 131 MG/DL (74-106) H Calcium Level 9.5 MG/DL (8.5-10.1) Objective HEAD AND NECK: Shows no JVD. LUNGS: Decreased breath sounds. CARDIOVASCULAR: Regular S1 and S2 with no gallop or murmur. ABDOMEN: Soft. EXTREMITIES: No pitting edema. Shimon Quarles MD Jul 23, 2018 16:55
--- NOTE | 2018-07-23 17:34 | General Progress Note ---
Assessment/Plan Status: stable Assessment/Plan Assessment/Recs: # Failure to thrive - likely related to underlying headache, has been ongoing --> ct of the brain has ruled out brain tumor --> tumor markers from before were negative, has received kumari-scan also negative for malignancy --> outpatient f/u in heme clinic for hydration on prn basis --> Treatment with IV hydration and analgesics. co-morbidities with HTN and DM. --> currently off fluids as per renal # Chronic tension headaches - have scanned his brain at this time to rule out massive cva --> have consulted neurology as well to rule out subacute stroke versus other causes --> was given hydration in the office, r/o other causes, DDx: bleed, CVA, tension, migraine, vasculitis, depression, medication side effect, dehydration, encephalitis, viral syndrome, arthritis, post concussive syndrome amongst others. # HTN - sbp gooal less than 140 --> Dr. Quarles has been consulted # Elev trop and cardiomegaly, cards to follow --> IM consulted, Dr. Alexis Hawthorne # Major depressive disorder, single episode, unspecified # Hyperglycemia # Dehydration --> renal consulted --> Bun elevated on admission # Prior infiltrated on cxr - have consulted pulm Appreciate all sql server consultant care. Subjective Date patient seen: Jul 23, 2018 ROS Limited/Unobtainable: Yes Allergies: Coded Allergies: No Known Allergies (Unverified , 03/09/18) All Systems: reviewed and negative except above Subjective Pt awake and alert. No acute events. Pt stable. DC planning. Objective Last 24 Hour Vital Signs Date Time Temp Pulse Resp B/P (MAP) Pulse Ox O2 Delivery O2 Flow Rate FiO2 07/23/18 16:00 68 07/23/18 12:00 78 07/23/18 12:00 98.6 75 20 144/77 (99) 95 98.6 07/23/18 09:00 Room Air 07/23/18 08:00 63 07/23/18 08:00 97.2 72 19 149/90 (109) 94 97.2 07/23/18 04:00 98.0 71 19 122/81 (95) 95 98.0 07/23/18 04:00 68 07/23/18 03:38 97.9 07/23/18 02:39 97.9 07/23/18 00:00 97.9 69 19 130/60 (83) 95 97.9 07/23/18 00:00 74 07/22/18 22:06 97.8 07/22/18 21:07 97.8 07/22/18 21:00 Room Air 07/22/18 20:00 97.2 74 18 143/77 (99) 95 97.2 07/22/18 20:00 74 07/22/18 18:36 97.8 07/22/18 17:37 97.8 Intake and Output 07/22/18 07/23/18 19:00 07:00 Intake Total 780 ml Balance 780 ml Intake Oral 780 ml # Voids 1 2 Laboratory Tests 07/22/18 19:10: Troponin I 0.023 07/23/18 03:10: Troponin I 0.022, White Blood Count 6.7, Red Blood Count 4.27, Hemoglobin 12.5, Hematocrit 37.4, Mean Corpuscular Volume 88, Mean Corpuscular Hemoglobin 29.2, Mean Corpuscular Hemoglobin Concent 33.4, Red Cell Distribution Width 11.3L, Platelet Count 233, Mean Platelet Volume 7.7, Neutrophils (%) (Auto) 46.6, Lymphocytes (%) (Auto) 41.1, Monocytes (%) (Auto) 8.0, Eosinophils (%) (Auto) 3.2H, Basophils (%) (Auto) 1.0, Sodium Level 143, Potassium Level 4.2, Chloride Level 108H, Carbon Dioxide Level 28, Anion Gap 7, Blood Urea Nitrogen 22H, Creatinine 1.0, Estimat Glomerular Filtration Rate , Glucose Level 131H, Calcium Level 9.5 Height (Feet): 5 Height (Inches): 5.00 Weight (Pounds): 180 General Appearance: no apparent distress EENT: PERRL/EOMI Neck: normal alignment Cardiovascular: normal peripheral pulses, irregularly irregular Respiratory/Chest: no respiratory distress Abdomen: soft Osbaldo Brewer MD Jul 23, 2018 17:34
[2018-07-23 17:44] VITALS: BP 144/85
--- NOTE | 2018-07-23 23:05 | General Progress Note ---
Assessment/Plan Assessment/Plan MDD Anxiety lexapro 10mg qam provided ro/st Subjective Date patient seen: Jul 23, 2018 Neurologic/Psychiatric: Reports: anxiety, depressed Allergies: Coded Allergies: No Known Allergies (Unverified , 03/09/18) Objective Last 24 Hour Vital Signs Date Time Temp Pulse Resp B/P (MAP) Pulse Ox O2 Delivery O2 Flow Rate FiO2 07/23/18 17:44 98.6 81 20 144/85 (104) 93 98.6 07/23/18 16:00 98.6 81 20 161/93 (115) 93 98.6 07/23/18 16:00 68 07/23/18 12:00 78 07/23/18 12:00 98.6 75 20 144/77 (99) 95 98.6 07/23/18 09:00 Room Air 07/23/18 08:00 63 07/23/18 08:00 97.2 72 19 149/90 (109) 94 97.2 07/23/18 04:00 98.0 71 19 122/81 (95) 95 98.0 07/23/18 04:00 68 07/23/18 03:38 97.9 07/23/18 02:39 97.9 07/23/18 00:00 97.9 69 19 130/60 (83) 95 97.9 07/23/18 00:00 74 Intake and Output 07/22/18 07/23/18 19:00 07:00 Intake Total 780 ml Balance 780 ml Intake Oral 780 ml # Voids 1 2 Laboratory Tests 07/23/18 03:10: White Blood Count 6.7, Red Blood Count 4.27, Hemoglobin 12.5, Hematocrit 37.4, Mean Corpuscular Volume 88, Mean Corpuscular Hemoglobin 29.2, Mean Corpuscular Hemoglobin Concent 33.4, Red Cell Distribution Width 11.3L, Platelet Count 233, Mean Platelet Volume 7.7, Neutrophils (%) (Auto) 46.6, Lymphocytes (%) (Auto) 41.1, Monocytes (%) (Auto) 8.0, Eosinophils (%) (Auto) 3.2H, Basophils (%) (Auto ) 1.0, Sodium Level 143, Potassium Level 4.2, Chloride Level 108H, Carbon Dioxide Level 28, Anion Gap 7, Blood Urea Nitrogen 22H, Creatinine 1.0, Estimat Glomerular Filtration Rate , Glucose Level 131H, Calcium Level 9.5, Troponin I 0.022 Height (Feet): 5 Height (Inches): 5.00 Weight (Pounds): 180 Tree Astudillo MD Jul 23, 2018 23:05
--- NOTE | 2018-07-23 23:05 | General Progress Note ---
Assessment/Plan Assessment/Plan MDD Anxiety lexapro 10mg qam provided ro/st Subjective Date patient seen: Jul 22, 2018 Neurologic/Psychiatric: Reports: anxiety, depressed, emotional problems Allergies: Coded Allergies: No Known Allergies (Unverified , 03/09/18) Objective Last 24 Hour Vital Signs Date Time Temp Pulse Resp B/P (MAP) Pulse Ox O2 Delivery O2 Flow Rate FiO2 07/23/18 17:44 98.6 81 20 144/85 (104) 93 98.6 07/23/18 16:00 98.6 81 20 161/93 (115) 93 98.6 07/23/18 16:00 68 07/23/18 12:00 78 07/23/18 12:00 98.6 75 20 144/77 (99) 95 98.6 07/23/18 09:00 Room Air 07/23/18 08:00 63 07/23/18 08:00 97.2 72 19 149/90 (109) 94 97.2 07/23/18 04:00 98.0 71 19 122/81 (95) 95 98.0 07/23/18 04:00 68 07/23/18 03:38 97.9 07/23/18 02:39 97.9 07/23/18 00:00 97.9 69 19 130/60 (83) 95 97.9 07/23/18 00:00 74 Intake and Output 07/22/18 07/23/18 19:00 07:00 Intake Total 780 ml Balance 780 ml Intake Oral 780 ml # Voids 1 2 Laboratory Tests 07/23/18 03:10: White Blood Count 6.7, Red Blood Count 4.27, Hemoglobin 12.5, Hematocrit 37.4, Mean Corpuscular Volume 88, Mean Corpuscular Hemoglobin 29.2, Mean Corpuscular Hemoglobin Concent 33.4, Red Cell Distribution Width 11.3L, Platelet Count 233, Mean Platelet Volume 7.7, Neutrophils (%) (Auto) 46.6, Lymphocytes (%) (Auto) 41.1, Monocytes (%) (Auto) 8.0, Eosinophils (%) (Auto) 3.2H, Basophils (%) (Auto ) 1.0, Sodium Level 143, Potassium Level 4.2, Chloride Level 108H, Carbon Dioxide Level 28, Anion Gap 7, Blood Urea Nitrogen 22H, Creatinine 1.0, Estimat Glomerular Filtration Rate , Glucose Level 131H, Calcium Level 9.5, Troponin I 0.022 Height (Feet): 5 Height (Inches): 5.00 Weight (Pounds): 180 General Appearance: no apparent distress, alert Tree Astudillo MD Jul 23, 2018 23:05
--- NOTE | 2018-07-26 12:54 | Discharge Summary ---
Discharge Summary Discharge Summary _ DATE OF ADMISSION: 07/20/2018 DATE OF DISCHARGE: 07/23/2018 REASON FOR ADMISSION: 76 years old female with past medical history significant for hypertension, diabetes mellitus, CVA, high cholesterol, hypothyroidism, presented with increased headache. Headaches were the described in occipital region, severe in intensity and constant in duration. No radiation to the neck. Pain medication did not work. Patient reported generalized weakness along with a poor appetite with nausea, but no vomiting. Patient tried herbal medication without relief. Pain was rated as 10 out of 10 on a scale 1-10, aching and pressure-like. Patient was evaluated in February of this year , status post hitting her head on the refrigerator . At that time evaluation was stable. Patient denied chest pain ,dyspnea, rashes, abdominal pain . Upon evaluation vital signs were stable. Laboratory workup revealed no leukocytosis, stable hemoglobin and hematocrit. Urinalysis without evidence of UTI. BUN 28, creatinine 1.3. Glucose 216 . Pro BNP 43. Chest x-ray revealed evidence of cardiomegaly and bilateral interstitial congestion. CT of the head revealed no acute intracranial pathology, and showed only age- related changes. Patient admitted with diagnoses of headache, dehydration ,depression, hyperglycemia. CONSULTANTS: graduate student instructor Dr. Quarles neurologist Dr. Medrano pulmonary Dr. Graves all source intelligence technician Dr. Eduardo psychiatrist paper rewinder Dr. Hawthorne [facility]: Patient admitted to telemetry floor. Neurologist closely followed. According to neurologist, patient had chronic muscle contraction headaches, recently increased in intensity. Neurologist started patient on Flexeril and Ibuprofen for 5 days. Patient started on gentle IV hydration. [employer] Principal closely followed . Renal parameters and electrolytes were closely monitor, electrolytes corrected as needed, nephrotoxins were avoided. Acute kidney injury resolved with IV hydration, likely was secondary to intravascular volume depletion. Wildlife Removal Specialist followed. Blood pressure was managed with calcium channel esther. Statin was continued. Supplemetnal oxygen provided as needed, to keep pulse oximetry above 92%. Chest x-ray revealed cardiomegaly and interstitial congestion , proBNP was only 43. Pulse oximetry was stable on room air. Pulmonary toilet was on standby as neede. Blood sugar was managed with Januvia and sliding scale of insulin as needed. Hemoglobin A1c- 8.0, not at goal, patient needs tighter blood sugar control as outpatient. Echocardiogram revealed preserved ejection fraction of 60% and right ventricular systolic pressure of 40, consistent with a mild pulmonary hypertension. Troponin was negative. Psychiatrist closely followed. Patient was continued with Lexapro. Reality orientation and supportive therapy provided. Pain management was addressed as needed. Pain was controlled. Patient was working with physical and occupational therapists. Bowel regimen instituted. Antiemetic provided as needed. Nausea resolved. Supportive care provided. Patient was stable for discharge home with outpatient follow-up with a primary care provider in one week FINAL DIAGNOSES: Acute kidney injury likely secondary to intravascular volume depletion-resolved Dehydration Chronic muscle contraction headaches Cardiomegaly Diabetes mellitus Hypertension History of CVA Mild pulmonary hypertension Major depressive disorder Anxiety disorder DISCHARGE MEDICATIONS: See Medication Reconciliation list. DISCHARGE INSTRUCTIONS: Patient was discharged home. Follow up with primary care provider in one week. Audrey Morales NP Jul 26, 2018 12:54
== END 2018-07-23 18:18 | disposition home or self-care (01) | DRG 103 ==
LOC: EMR 17:18 → 2E 17:23 → EDBEDREQ 19:12 → 2E 07-23 10:28
DX: R51 Headache (principal); N17.9 Acute kidney failure, unspecified; I10 Essential (primary) hypertension; E86.0 Dehydration; E11.65 Type 2 diabetes mellitus with hyperglycemia; F32.9 Major depressive disorder, single episode, unspecified; Z86.73 Personal history of transient ischemic attack (TIA), and cerebral infarction without residual deficits; G44.89 Other headache syndrome; I51.7 Cardiomegaly; I27.20 Pulmonary hypertension, unspecified; F41.9 Anxiety disorder, unspecified; R60.9 Edema, unspecified; R62.7 Adult failure to thrive
CPT/HCPCS: 36415; 70450; 71045; 80048; 80053; 81003; 82306; 82550; 82607; 82746; 82962; 83036; 83880; 84443; 84484; 85025; 85610; 85651; 85730; 86140; 86592; 93005; 93306; 99285; J1815; J2405; J2765